=== PATIENT | male | born 1950 | race Two or more races ===

== ENCOUNTER 2022-07-04 17:02 | Inpatient (IN) | payer MEDICARE, OTHER ==
[~2022-07-04] VITALS: Ht 170.2 cm; Wt 91.2 kg
--- NOTE | 2022-07-04 17:10 | NUR ---
BIBA RA 85 From Home SOB/COPD exacerbation. PLACED ON BED, AAOX3, DYSPNEIC RR- 22 SATURATING AT 84%RA. 02 APPLIED 4LIT VIA NASAL CANULA SATURATING AT 94%.
[2022-07-04] MEDS ORDERED: methylPREDNISolone SOD SUCC 125 MG/2ML VIAL ONE (17:26)
[2022-07-04] MEDS ORDERED: ALBUTEROL FS 2.5 MG/3 ML VIAL.NEB NEB ONE ×2 (17:30→20:30)
[2022-07-04] MEDS ORDERED: IV NS 0.9% 500 ML BAG IV ONE ×2 (17:30→20:30)
[2022-07-04] MEDS ORDERED: ALBUTEROL FS 2.5 MG/3 ML VIAL.NEB CONTNEB ONE (17:30)
[2022-07-04] MEDS ORDERED: methylPREDNISolone SOD SUCC 125 MG/2ML VIAL IV ONE (17:30)
--- NOTE | 2022-07-04 17:30 | NUR ---
X-RAY TECH AT BED SIDE
[2022-07-04] MEDS ORDERED: ALBUTEROL FS 2.5 MG/3 ML VIAL.NEB ONE ×2 (17:32→20:09)
--- NOTE | 2022-07-04 17:39 | NUR ---
SWAB FOR COVID19 SENT TO LAB
--- NOTE | 2022-07-04 17:40 | NUR ---
LICENSED LOAN OFFICER AT BED SIDE FOR NEBULIZER
[2022-07-04 18:04] LABS: ABG BASE EXCESS -15.8 mmol/L; ABG PH 7.261 (7.350-7.450); ABG PO2 160.9 mmHg (75.0-100.0); COHb 0.8 % (0.5-1.5); MetHb 0.2 % (0.0-1.5); O2Hb 97.5 % (94.0-97.0); SITE, ABG Left Radial; VENT MODE, BG BREATHING TX
[2022-07-04] MEDS ORDERED: METO25TA3 PO (18:32)
[2022-07-04] MEDS ORDERED: UMEC1BLS IH (18:32)
[2022-07-04] MEDS ORDERED: LOSA100T31 PO (18:32)
[2022-07-04] MEDS ORDERED: ASPI-1169 PO (18:32)
[2022-07-04] MEDS ORDERED: OMEP20CA15 PO (18:32)
[2022-07-04] MEDS ORDERED: NIFE-34 PO (18:32)
[2022-07-04] MEDS ORDERED: ATOR10TA PO (18:32)
[2022-07-04] MEDS ORDERED: METF-441 PO (18:32)
[2022-07-04] MEDS ORDERED: ALBU18HF2 IH (18:32)
[2022-07-04] MEDS ORDERED: OMEG10006 PO (18:32)
[2022-07-04] MEDS ORDERED: RIVA10TA PO (18:32)
--- NOTE | 2022-07-04 19:15 | NUR ---
UNIT SUPERVISOR AT BED SIDE
[2022-07-04] MEDS ORDERED: ACETAMINOPHEN ES 500 MG TABLET ONE (19:44)
--- NOTE | 2022-07-04 19:57 | NUR ---
LACTIC ACID 7.2
[2022-07-04 19:58] LABS: ALANINE AMINOTRANSFERASE 66 U/L (12-78); ALBUMIN 2.9 g/dL (3.4-5.0); ALKALINE PHOSPHATASE 84 U/L (46-116); ASPARTATE AMINOTRANSFERASE 99 U/L (15-37); BILIRUBIN,DIRECT 0.5 mg/dL (0.0-0.2); BILIRUBIN,TOTAL 1.1 mg/dL (0.2-1.0); CALCIUM, SERUM 8.1 mg/dL (8.5-10.1); CARBON DIOXIDE 13 mmol/L (21-32); CHLORIDE 101 mmol/L (98-107); CREATININE 2.4 mg/dL (0.6-1.3); GLUCOSE 184 mg/dL (74-106); SODIUM SERUM 130 mmol/L (136-145); TOTAL PROTEIN, SERUM 7.8 g/dL (6.4-8.2); UREA NITROGEN, BLOOD 20 mg/dL (7-18)
[2022-07-04] MEDS ORDERED: ACETAMINOPHEN ES 500 MG TABLET PO ONE (20:00)
[2022-07-04 20:01] LABS: BASOPHILS # (AUTO) 0.1 K/uL (0.0-0.2); BASOPHILS % (AUTO) 0.5 % (0.0-2.0); EOSINOPHILS % (AUTO) 3.5 % (0.0-6.0); HEMATOCRIT 39 % (39-51); HEMOGLOBIN 12.1 g/dL (13.5-17.5); LYMPHOCYTES # (AUTO) 2.1 K/uL (0.8-4.8); LYMPHOCYTES % (AUTO) 17.6 % (20.0-44.0); MEAN CORPUSCULAR HGB CONC 31 g/dl (31.0-36.0); MEAN CORPUSCULAR VOLUME 79 fL (80-96); MONOCYTES # (AUTO) 0.6 K/uL (0.1-1.30); MONOCYTES % (AUTO) 5.4 % (2.0-12.0); NEUTROPHILS # (AUTO) 8.7 K/uL (1.8-8.9); PLATELET COUNT (AUTO) 266 K/uL (150-450); RED BLOOD CELL COUNT(AUTO) 4.93 MIL/uL (4.5-6.0); WHITE BLOOD COUNT (AUTO) 11.9 K/uL (4.3-11.0)
[2022-07-04 20:02] LABS: POTASSIUM 7.3 mmol/L (3.5-5.1)
[2022-07-04] MEDS ORDERED: INSULIN REGULAR, HUMAN 100 UNIT/ML 10 ML VIAL ONE (20:13)
[2022-07-04] MEDS ORDERED: DEXTROSE 50%-WATER 50 ML DISP.SYRIN ONE (20:13)
[2022-07-04] MEDS ORDERED: CALCIUM CHLORIDE 1,000 MG/10 ML DISP.SYRIN ONE (20:13)
[2022-07-04] MEDS ORDERED: SODIUM BICARBONATE SYR 50 MEQ/50 ML DISP.SYRIN ONE (20:13)
[2022-07-04] MEDS ORDERED: SODIUM POLYSTYRENE SULFONATE 15 G/60 ML BOTTLE PO ONE (20:30)
[2022-07-04] MEDS ORDERED: INSULIN REGULAR, HUMAN 100 UNIT/ML 10 ML VIAL IV ONE (20:30)
[2022-07-04] MEDS ORDERED: AZITHROMYCIN 500 MG in IV D5W 250 ML IV ONE (20:30)
[2022-07-04] MEDS ORDERED: CEFTRIAXONE 1GM BAG (ER ONLY) 50 ML IV ONE ×2 (20:30→21:15)
[2022-07-04] MEDS ORDERED: SODIUM BICARBONATE SYR 50 MEQ/50 ML DISP.SYRIN IV ONE ×2 (20:30→23:00)
[2022-07-04] MEDS ORDERED: IV NS 0.9% 1,000 ML BAG IV ONE (20:30)
[2022-07-04] MEDS ORDERED: DEXTROSE 50%-WATER 50 ML DISP.SYRIN IV ONE (20:30)
[2022-07-04] MEDS ORDERED: CALCIUM CHLORIDE 1,000 MG/10 ML DISP.SYRIN IV ONE (20:30)
--- NOTE | 2022-07-04 20:35 | NUR ---
CAMILO BELTRAN BONE CRUSHER AT PT'S BEDSIDE
[2022-07-04] MEDS ORDERED: CEFTRIAXONE 1GM BAG (ER ONLY) 0 ML IV ONE (21:10)
[2022-07-04] MEDS ORDERED: SODIUM POLYSTYRENE SULFONATE 15 G/60 ML BOTTLE ONE (21:11)
[2022-07-04] MEDS ORDERED: AZITHROMYCIN 500 MG VIAL ONE (21:15)
[2022-07-04] MEDS ORDERED: DEXTROSE 50%-WATER 50 ML DISP.SYRIN IV PRN (21:30)
[2022-07-04 22:11] LABS: CALCIUM, SERUM 7.3 mg/dL (8.5-10.1); CARBON DIOXIDE 14 mmol/L (21-32); CHLORIDE 105 mmol/L (98-107); CREATININE 2.6 mg/dL (0.6-1.3); GLUCOSE 197 mg/dL (74-106); POTASSIUM 5.4 mmol/L (3.5-5.1); SODIUM SERUM 135 mmol/L (136-145); UREA NITROGEN, BLOOD 22 mg/dL (7-18)
[2022-07-04] MEDS: BLOOD SUGAR DIAGNOSTIC 1 EACH STRIP VI SCH (22:39)
--- NOTE | 2022-07-04 22:52 | NUR ---
326 bed 2
[2022-07-04] MEDS ORDERED: MAG HYDROX/AL HYDROX/SIMETH 30 ML UDC PO PRN (23:00)
[2022-07-04] MEDS ORDERED: ONDANSETRON HCL/PF 4 MG/2 ML VIAL IVP PRN (23:00)
[2022-07-04] MEDS ORDERED: IV NS 0.9% 1,000 ML IV PRN (23:00)
[2022-07-04] MEDS ORDERED: Z GUARD REMEDY 4 OZ OINT TP PRN (23:00)
[2022-07-04] MEDS ORDERED: MAGNESIUM HYDROXIDE 30 ML UDC PO PRN (23:00)
[2022-07-04] MEDS ORDERED: ZOLPIDEM TARTRATE 5 MG TABLET PO PRN (23:00)
[2022-07-04] MEDS ORDERED: ACETAMINOPHEN 325 MG TABLET PO PRN (23:00)
--- NOTE | 2022-07-04 23:30 | NUR ---
REPORT GIVEN TO CHELO MARSHALL ROOM 326-2 FOR PATSY
[2022-07-05] MEDS ORDERED: IPRATROPIUM NEB FS 0.5 MG/2.5 ML AMPUL.NEB NEB SCH
[2022-07-05] MEDS ORDERED: methylPREDNISolone SOD SUCC 125 MG/2ML VIAL IV SCH
[2022-07-05] MEDS ORDERED: ALBUTEROL FS 2.5 MG/3 ML VIAL.NEB NEB SCH
[2022-07-05] MEDS ORDERED: PIPERACILLIN /TAZOBACTAM 2.25 G in IV D5W 50 ML IV SCH (00:04)
[2022-07-05] MEDS ORDERED: ALBUTEROL FS 2.5 MG/3 ML VIAL.NEB NEB PRN (00:30)
--- NOTE | 2022-07-05 00:43 | NUR ---
PATIENT TRANSFERRED TO [facility] [place] [facility]IA [facility]
--- NOTE | 2022-07-05 00:50 | NUR ---
PT TRANSFERRED TO 3W VIA ACLS PROTOCOL. VSS. ALL BELONGINGS AT PT'S BEDSIDE. ENDORSED PATSY AND GAVE PT'S HOME MEDS TO CHELO Acosta RN.
[2022-07-05] MEDS: IV NS 0.9% 1,000 ML IV PRN (02:43)
[2022-07-05] MEDS ORDERED: PIPERACILLIN /TAZOBACTAM 2.25 G VIAL IV ONE (02:56)
[2022-07-05] MEDS ORDERED: SODIUM BICARBONATE SYR 50 MEQ/50 ML DISP.SYRIN ONE (02:57)
[2022-07-05 04:40] VITALS: BP 132/85
[2022-07-05] MEDS: BLOOD SUGAR DIAGNOSTIC 1 EACH STRIP VI SCH ×4 (06:00→21:59)
[2022-07-05 06:31] LABS: BASOPHILS % (AUTO) 0.1 % (0.0-2.0); EOSINOPHILS % (AUTO) 0.1 % (0.0-6.0); HEMATOCRIT 38 % (39-51); HEMOGLOBIN 11.9 g/dL (13.5-17.5); LYMPHOCYTES # (AUTO) 0.5 K/uL (0.8-4.8); MEAN CORPUSCULAR HGB CONC 32 g/dl (31.0-36.0); MEAN CORPUSCULAR VOLUME 78 fL (80-96); MONOCYTES # (AUTO) 0.1 K/uL (0.1-1.30); MONOCYTES % (AUTO) 1.4 % (2.0-12.0); NEUTROPHILS # (AUTO) 7.9 K/uL (1.8-8.9); NEUTROPHILS % (AUTO) 92.4 % (43.0-81.0); PLATELET COUNT (AUTO) 232 K/uL (150-450); RED BLOOD CELL COUNT(AUTO) 4.83 MIL/uL (4.5-6.0); WHITE BLOOD COUNT (AUTO) 8.5 K/uL (4.3-11.0)
[2022-07-05] MEDS: INSULIN REGULAR, HUMAN 100 UNIT/ML 3 ML VIAL SQ PRN ×3 (06:32→17:05)
[2022-07-05 06:55] LABS: ALANINE AMINOTRANSFERASE 95 U/L (12-78); ALKALINE PHOSPHATASE 80 U/L (46-116); ASPARTATE AMINOTRANSFERASE 111 U/L (15-37); CALCIUM, SERUM 8.1 mg/dL (8.5-10.1); CARBON DIOXIDE 17 mmol/L (21-32); CHLORIDE 103 mmol/L (98-107); CREATININE 2.4 mg/dL (0.6-1.3); GLUCOSE 186 mg/dL (74-106); MAGNESIUM 1.6 mg/dL (1.8-2.4); PHOSPHORUS 4.1 mg/dL (2.5-4.9); POTASSIUM 5.1 mmol/L (3.5-5.1); SODIUM SERUM 136 mmol/L (136-145); TOTAL PROTEIN, SERUM 7.8 g/dL (6.4-8.2); UREA NITROGEN, BLOOD 23 mg/dL (7-18)
--- NOTE | 2022-07-05 07:30 | NUR ---
DIGITAL ACCOUNT DIRECTOR OPENING NOTES: RECEIVED PATIENT IN BED AWAKE, NOT IN RESPIRATORY OR CARDIAC DISTRESS, AFEBRILE. ON o2 INHALATION @ 2LPM VIA NC AND TOLERATING WELL. PATIENT ALERT AND ORIENTED X 3, BANGAL SPEAKING BUT ABLE TO UNDERSTAND POLISH. ON CLINICAL DATA ASSOCIATE CURRENT READING OF SR @62 BPM. WITH LEFT HAND IV ACCESS GAUGE 22 AND INFUSING NS @100CC/HR AND INFUSING WELL. SAFETY PRECAUTIONS MAINTAINED: BED LOCKED AND IN LOWEST POSITION, SIDE RAILS UP X2. CALL LIGHT IN EASY REACH. WILL MONITOR PT ACCORDINGLY.
[2022-07-05] MEDS: PANTOPRAZOLE 40 MG TABLET.DR PO SCH (07:35)
[2022-07-05 08:00] VITALS: BP 138/72
[2022-07-05] MEDS ORDERED: RIVAROXABAN 15 MG TABLET PO SCH ×2 (08:30→09:00)
[2022-07-05] MEDS: ASPIRIN 81 MG TAB.CHEW PO SCH (08:36)
[2022-07-05] MEDS: METOPROLOL SUCCINATE 50 MG TAB.SR.24H PO SCH (08:36)
[2022-07-05] MEDS: NIFEdipine XL (30MG) 30 MG TAB PO SCH (08:37)
[2022-07-05] MEDS ORDERED: OMEGA PO SCH (09:00)
[2022-07-05] MEDS ORDERED: RIVAROXABAN 10 MG TABLET PO SCH (09:00)
[2022-07-05] MEDS ORDERED: FATTY ACIDS PO SCH (09:00)
[2022-07-05 09:19] LABS: ABG BASE EXCESS -8.5 mmol/L; ABG OXYGEN SATURATION 93.4 % (92.0-98.5); ABG PCO2 27.5 mmHg (35.0-45.0); ABG PH 7.367 (7.350-7.450); ABG PO2 73.2 mmHg (75.0-100.0); AaDO2 122.8 mmHg; COHb 1.3 % (0.5-1.5); MetHb 0.1 % (0.0-1.5); O2Hb 92.1 % (94.0-97.0); SITE, ABG Left Radial
[2022-07-05] MEDS: PIPERACILLIN /TAZOBACTAM 2.25 G in IV D5W 50 ML IV SCH ×3 (09:36→21:59)
[2022-07-05] MEDS: methylPREDNISolone SOD SUCC 125 MG/2ML VIAL IV SCH ×3 (09:44→21:59)
[2022-07-05] MEDS ORDERED: HEPARIN SODIUM, PORCINE 5000 UNITS/1 ML VIAL SQ SCH ×2 (10:00→17:00)
--- NOTE | 2022-07-05 10:18 | NUR ---
RN NOTES: RECEIVED A CALL FROM AALIYAH(LAB) LACTIC ACID 5.5 TRENDING DOWN, INFORMED DR OWENS.
[2022-07-05] MEDS ORDERED: IV NS 0.9% 1,000 ML IV ONE (10:30)
[2022-07-05 11:12] LABS: BILIRUBIN,URINE NEGATIVE (NEGATIVE); COLOR,URINE YELLOW (YELLOW); LEUKOCYTE ESTERASE ,URINE NEGATIVE (NEGATIVE); NITRITE, URINE NEGATIVE (NEGATIVE); PH,URINE 5.5 (5.0-8.0); PROTEIN,URINE TRACE mg/dl (NEGATIVE); UGLUCOSE 100 MG/DL mg/dL (NEGATIVE); UROBILINOGEN,URINE 0.2 EU/dL (0.2)
[2022-07-05 11:22] LABS: CREATININE, URINE 45.7 MG/DL (30.0-125.0)
[2022-07-05 11:47] LABS: BACTERIA,URINE Rare /HPF (None Seen); RBC,URINE 0-2 /HPF (0-2); SQUAMOUS EPITHELIAL CELL,UR Rare /HPF (None Seen); WBC,URINE 0-2 /HPF (0-3)
[2022-07-05 12:00] VITALS: BP 111/69
--- NOTE | 2022-07-05 12:26 | NUR ---
RN NOTES: OBTAINED TELEPHONE CONSENT FROM ESTELLA (DAUGHTER)[phone] FOR HD ACCESS INSERTION AND HD.
[2022-07-05] MEDS ORDERED: Magnesium 1GM/D5W 100ML PREMIX 100 ML IV SCH (12:30)
--- NOTE | 2022-07-05 14:00 | NUR ---
RN NOTES: S/P RIGHT IJ CATH PLACEMENT, PATIENT TOLERATED WELL.
--- NOTE | 2022-07-05 14:00 | NUR ---
JOANNA NOTES: PATIENT S/P IJ CATH INSERTION (LEFT), PATIENT TOLERATED WELL. Addendum: 07/05/22 at 1800 by EDIE FONTANA RN ERROR, RIGHT IJ CATH
[2022-07-05] MEDS: IPRATROPIUM NEB FS 0.5 MG/2.5 ML AMPUL.NEB NEB SCH ×2 (14:28→20:29)
[2022-07-05] MEDS: ALBUTEROL FS 2.5 MG/3 ML VIAL.NEB NEB SCH ×2 (14:29→20:29)
--- NOTE | 2022-07-05 15:20 | NUR ---
RN NOTES: PATIENT ONGOING FOR HD WITH JOANNA CALDERON. FAMILY AT BED SIDE.
[2022-07-05 16:00] VITALS: BP 106/81
--- NOTE | 2022-07-05 16:00 | NUR ---
RN NOTES: PATIENT HAD XRAY FOR CHECKING PLACEMENT OF THE HD CATH.
--- NOTE | 2022-07-05 18:20 | NUR ---
RN NOTES: S/P HD, BP 125/62, HR 65,OUT WITH 2L FLUIDS. FAMILY AT BEDSIDE.PATIENT STABLE AT THIS TIME.
--- NOTE | 2022-07-05 18:58 | NUR ---
TUFTING MACHINE OPERATOR SINGLE NEEDLE CLOSING NOTES: PATIENT IN BED AWAKE, NOT IN RESPIRATORY OR CARDIAC DISTRESS, AFEBRILE. ON o2 INHALATION @ 2LPM VIA NC AND TOLERATING WELL. PATIENT ALERT AND ORIENTED X 3, BANGAL SPEAKING BUT ABLE TO UNDERSTAND NEPALI. ON HEAD INSULATION BOARD SAW OPERATOR CURRENT READING OF SR 68 BPM WITH PVC'S. WITH LEFT HAND IV ACCESS GAUGE 22 AND INFUSING NS @100CC/HR AND INFUSING WELL. SAFETY PRECAUTIONS MAINTAINED: BED LOCKED AND IN LOWEST POSITION, SIDE RAILS UP X2. CALL LIGHT IN EASY REACH. ENDORSED TO CONTRACT CONSULTANT FOR PATSY.
--- NOTE | 2022-07-05 19:30 | NUR ---
RN OPENING NOTE PATIENT IN BED, AWAKE WITH FAMILY AT BEDSIDE. PATIENT IS ABLE TO MAKE NEEDS KNOWN. ABLE TO UNDERSTAND NIGERIAN, PRIMARY TAMAZIGHT SPEAKING. PATIENT HAS A NC ON 2LP TOLERATING WELL. NO SOB NOTED AT THIS TIME. PATIENT HAS A LHAND 22 G PATENT AND INTACT. RIJ DRESSING IN PLACE, C/D/I. TELE MONITOR READS 72 BPM WITH PVC SR. PATIENT DOES NOT REPORT ANY PAIN. SAFETY MEASURES IN PLACE: BED LOCKED AND IN LOWEST POSITION, CALL LIGHT WITHIN REACH, SIDE RAILS UP. WILL MONITOR PATIENT CLOSELY
[2022-07-05 20:00] VITALS: BP 118/61
[2022-07-05] MEDS: ATORVASTATIN 10 MG TABLET PO SCH (21:58)
[2022-07-05] MEDS: *INSULIN REGULAR(HUMULIN R)HUM 100 UNIT/ML VIAL SQ PRN (22:20)
[2022-07-06] MEDS: ALBUTEROL FS 2.5 MG/3 ML VIAL.NEB NEB SCH ×2 (01:34→08:13)
[2022-07-06] MEDS: IPRATROPIUM NEB FS 0.5 MG/2.5 ML AMPUL.NEB NEB SCH ×4 (01:34→20:17)
--- NOTE | 2022-07-06 01:41 | NUR ---
RN NOTE NOTIFIED MD RE STAT EKG RESULT AFIB, HR AFIB UNCONTROLLED HIGHEST 128 BPM. MD ORDERED METOPROLOL 5 MG IV ONCE.
[2022-07-06] MEDS ORDERED: METOPROLOL TARTRATE INJ 5 MG/5 ML AMPUL IVP ONE (02:00)
[2022-07-06] MEDS: PIPERACILLIN /TAZOBACTAM 2.25 G in IV D5W 50 ML IV SCH ×4 (02:02→21:51)
[2022-07-06] MEDS: methylPREDNISolone SOD SUCC 125 MG/2ML VIAL IV SCH ×2 (02:02→08:42)
[2022-07-06] MEDS: IV NS 0.9% 1,000 ML IV PRN ×2 (02:02→09:38)
[2022-07-06] MEDS ORDERED: METOPROLOL TARTRATE INJ 5 MG/5 ML AMPUL ONE (05:07)
[2022-07-06] MEDS: BLOOD SUGAR DIAGNOSTIC 1 EACH STRIP VI SCH ×4 (07:57→22:39)
[2022-07-06 08:00] VITALS: BP 126/77
[2022-07-06] MEDS: INSULIN REGULAR, HUMAN 100 UNIT/ML 3 ML VIAL SQ PRN ×3 (08:00→17:27)
--- NOTE | 2022-07-06 08:14 | NUR ---
CORRESPONDENCE SCHOOL TEACHER OPENING NOTE Patient in bed, awake. A/O 3, able to make needs known. Iv access on Left hand #18 infusing NS at 100 ml/hr. On tele monitoring showing uncontrolled Afib, HR 122. Patient for transfer to [facility]; patient still eating breakfast. Safety precautions in place: bed in low, locked position; siderails up x 2; call ight within reach. Will continue to monitor.
[2022-07-06] MEDS ORDERED: RIVAROXABAN 15 MG TABLET PO SCH ×2 (08:30→18:00)
[2022-07-06] MEDS: PANTOPRAZOLE 40 MG TABLET.DR PO SCH (08:42)
[2022-07-06] MEDS: ASPIRIN 81 MG TAB.CHEW PO SCH (08:42)
[2022-07-06] MEDS: NIFEdipine XL (30MG) 30 MG TAB PO SCH (08:42)
[2022-07-06] MEDS: METOPROLOL SUCCINATE 50 MG TAB.SR.24H PO SCH ×2 (08:43→21:53)
--- NOTE | 2022-07-06 09:20 | NUR ---
RN NOTE PATIENT TRANSFERRED TO [facility] AT 0920. I RECEIVED THE REPORT FROM MILADYS. PATIENT A/O X3, NO S/S OF DISTRESS. SPEAKING C[place] AND SOME VATICAN CITIZEN. PATIENT DIAGNOSIS ARE SOB, COPD EXACERBATION, A-FIB. PATIENT'S VITAL SIGNS UPON ARRIVING ARE TEMP:97.7 HR: 137 RR:22 O2:97 BP:134/80. , LEFT HAND IVF 18G. NC 2L, SKIN INTACT, WEIGHT: 145 LB, MONITOR UNCONTROLLED A-FIB. CHOPPED CONSISTENT CARB DIET. COVID NEGATIVE, FULL CODE. PATIENT'S BED AT LOWEST POSITION, CALL LIGHT WITHIN REACH, BED ALARM ON, WILL CONTINUE MONITORING THE PATIENT.
--- NOTE | 2022-07-06 09:22 | NUR ---
RN NOTE Report given to JOANNA Melendez of [facility] at 0855. Patient transferred to room 113-2 in [facility] for PATSY per ACLS protocol.
[2022-07-06 10:28] LABS: ABG BASE EXCESS -3.8 mmol/L; ABG OXYGEN SATURATION 90.1 % (92.0-98.5); ABG PCO2 31.3 mmHg (35.0-45.0); ABG PH 7.418 (7.350-7.450); ABG PO2 61.5 mmHg (75.0-100.0); AaDO2 101.2 mmHg; COHb 1.3 % (0.5-1.5); O2Hb 88.9 % (94.0-97.0); SITE, ABG Right Radial; VENT MODE, BG 2 LPM NC
[2022-07-06 10:51] LABS: ALANINE AMINOTRANSFERASE 66 U/L (12-78); ALBUMIN 2.8 g/dL (3.4-5.0); ALKALINE PHOSPHATASE 65 U/L (46-116); ASPARTATE AMINOTRANSFERASE 62 U/L (15-37); BILIRUBIN,TOTAL 0.9 mg/dL (0.2-1.0); CALCIUM, SERUM 7.5 mg/dL (8.5-10.1); CARBON DIOXIDE 23 mmol/L (21-32); CHLORIDE 102 mmol/L (98-107); CREATININE 1.5 mg/dL (0.6-1.3); GLUCOSE 173 mg/dL (74-106); SODIUM SERUM 134 mmol/L (136-145); TOTAL PROTEIN, SERUM 7.1 g/dL (6.4-8.2); UREA NITROGEN, BLOOD 18 mg/dL (7-18)
[2022-07-06] MEDS ORDERED: AMIODARONE 150 MG in IV D5W 100 ML IV ONE (11:30)
[2022-07-06] MEDS: AMIODARONE 450 MG in IV D5W 241 ML IV PRN ×2 (11:55→20:47)
[2022-07-06 12:00] VITALS: BP 142/72
[2022-07-06] MEDS ORDERED: ENOXAPARIN SODIUM 80 MG/0.8 ML DISP.SYRIN SQ SCH (12:30)
--- NOTE | 2022-07-06 14:06 | NUR ---
RESP TX DEFERRED, PT RECEIVING DIALYSIS. NO S/S OF SOB NOTED ATT Addendum: 07/06/22 at 1406 by MARYA ZAYAS RT Amended: Links added.
[2022-07-06 16:00] VITALS: BP 105/76
--- NOTE | 2022-07-06 16:01 | NUR ---
RN NOTE PATIENT COMPLETED RECEIVING HEMODIALYSIS, TOLERATED WELL. PER HD NURSE, REMOVED 1980 ML DURING HEMODIALYSIS. POST HD VITAL SIGNS BP-105/52, PULSE-117, RESPIRATIONS-22, TEMP-98.2.
[2022-07-06] MEDS: RIVAROXABAN 15 MG TABLET PO SCH (17:32)
[2022-07-06] MEDS: methylPREDNISolone SOD SUCC 40 MG/ML VIAL IV SCH (17:33)
--- NOTE | 2022-07-06 19:25 | NUR ---
RN NOTES RECEIVED PT FOR CONTINUITY OF CARE. PATIENT A/OX3 IN NO S/SX OF ACUTE DISTRESS AT THIS TIME; CURRENTLY ON2L OF 02 VIA NC, WITH 02 SAT >95% AT THIS TIME. WITH IV ACCESS ON R HAND#22 AND R FA#22 BOTH PATENT, INTACT AND FLUSHING WELL. WITH ONGOING AMIO DRIP RECEIVED @RATE OF 0.5MG/MIN; RUNNING AND MONITORED PER PROTOCOL . ALSO HAS R IJ SECURED AND INTACT NO SIGNS OF INFECTION. WILL ENSURE SAFETY MEASURES WITHIN THE SHIFT. PATIENT BED ALARM IS ON. HEAD OF BED ELEVATED. BED IS LOCKED, IN LOWEST POSITION AND SIDE RAILS UP. CALL LIGHT WITHIN REACH OF THE PATIENT. APPLICABLE ISOLATION PRECAUTIONS IN PLACE. WILL CONTINUE TO MONITOR AND REASSESS FOR ANY CHANGES AND WILL CARRY OUT ANY ONGOING AND ACTIVE MD ORDER.
[2022-07-06 20:00] VITALS: BP 111/74
[2022-07-06] MEDS: ATORVASTATIN 10 MG TABLET PO SCH (21:52)
[2022-07-06] MEDS: *INSULIN REGULAR(HUMULIN R)HUM 100 UNIT/ML VIAL SQ PRN (22:38)
--- NOTE | 2022-07-06 22:41 | NUR ---
td rn notes Blood sugar at 10pm is 227mg/dl 4 units of regular insulin given per sliding scale pts on po diet
[2022-07-07] VITALS: BP 119/83
[2022-07-07] MEDS: IPRATROPIUM NEB FS 0.5 MG/2.5 ML AMPUL.NEB NEB SCH ×4 (01:27→20:23)
[2022-07-07 04:00] VITALS: BP 125/79
[2022-07-07] MEDS: PIPERACILLIN /TAZOBACTAM 2.25 G in IV D5W 50 ML IV SCH ×4 (04:09→21:03)
[2022-07-07] MEDS: IV NS 0.9% 1,000 ML IV PRN ×2 (06:01→17:49)
--- NOTE | 2022-07-07 06:54 | NUR ---
[facility] RN NOTES PTS REMAINS IN BED A/O X 4 REMAINS ON [facility] STATUS ON 2 LITERS OF O2 VIA NC STILL ON AFIB 101 SATING 96 % NO SOB NO DISTRESS NOTED . CONT ON AMIODARONE DRIP 0.5MG/MIN, WELL ENDORSE TO RN DAY SHIFT FOR CONTINUITY OF CARE
--- NOTE | 2022-07-07 07:30 | NUR ---
RN OPENING NOTE PATIENT AWAKE IN BED. PATIENT IS ABLE TO MAKE NEEDS KNOWN. ABLE TO UNDERSTAND OCCITAN, PRIMARY DANISH SPEAKING. PATIENT HAS A NC ON 2LP TOLERATING WELL. NO SOB NOTED AT THIS TIME. PATIENT HAS A LHAND 22 G PATENT AND INTACT. RIJ DRESSING IN PLACE, C/D/I. A-Fib 101. PATIENT DOES NOT REPORT ANY PAIN. SAFETY MEASURES IN PLACE: BED LOCKED AND IN LOWEST POSITION, CALL LIGHT WITHIN REACH, SIDE RAILS UP. WILL MONITOR PATIENT CLOSELY
[2022-07-07] MEDS: PANTOPRAZOLE 40 MG TABLET.DR PO SCH (07:47)
[2022-07-07 08:00] VITALS: BP 129/81
[2022-07-07] MEDS: BLOOD SUGAR DIAGNOSTIC 1 EACH STRIP VI SCH ×4 (08:18→22:27)
[2022-07-07 09:57] LABS: ALBUMIN 2.6 g/dL (3.4-5.0); BILIRUBIN,TOTAL 0.8 mg/dL (0.2-1.0); CALCIUM, SERUM 7.3 mg/dL (8.5-10.1); CREATININE 1.2 mg/dL (0.6-1.3); POTASSIUM 3.2 mmol/L (3.5-5.1); TOTAL PROTEIN, SERUM 6.4 g/dL (6.4-8.2)
--- NOTE | 2022-07-07 11:01 | NUR ---
RN NOTE PATIENT'S 0900 O'CLOCK MEDICATION WERE ON HOLD DUE TO DIALYSIS NURSE REQUEST. NOW AT 1100 DIALYSIS IS DONE AND I AM GOING TO ADMINISTER THE 0900 O'CLOCK MEDICATION.
[2022-07-07] MEDS: NIFEdipine XL (30MG) 30 MG TAB PO SCH (11:07)
[2022-07-07] MEDS: methylPREDNISolone SOD SUCC 40 MG/ML VIAL IV SCH ×2 (11:08→17:17)
[2022-07-07] MEDS: ASPIRIN 81 MG TAB.CHEW PO SCH (11:08)
[2022-07-07] MEDS: METOPROLOL SUCCINATE 50 MG TAB.SR.24H PO SCH ×2 (11:08→17:14)
[2022-07-07] MEDS: DILTIAZEM HCL 30 MG TABLET PO SCH ×3 (11:36→23:32)
[2022-07-07 12:00] VITALS: BP 144/85
[2022-07-07] MEDS: INSULIN REGULAR, HUMAN 100 UNIT/ML 3 ML VIAL SQ PRN ×2 (12:19→17:04)
[2022-07-07 16:00] VITALS: BP 111/63
[2022-07-07] MEDS: RIVAROXABAN 15 MG TABLET PO SCH (17:16)
--- NOTE | 2022-07-07 19:00 | NUR ---
CLOSING NOTES PATIENT REMAINS IN BED A/O X 4. ON 2 LITERS OF O2 VIA NC STILL ON AFIB 95 SATING 95% NO SOB NO DISTRESS NOTED. CALL LIGHT WITHIN THE REACH, BED AT LOWEST POSITION, SIDE RAILS UP X3. WELL ENDORSE TO SODA DISPENSERFOOTWEAR STITCHER FOR CONTINUITY OF CARE.
[2022-07-07 20:00] VITALS: BP 104/58
--- NOTE | 2022-07-07 20:30 | NUR ---
mohamud rn notes Pts noted on tele afib hr 45-60 [facility] medical cost consultant made aware will continue to monitor pts.
[2022-07-07] MEDS: ATORVASTATIN 10 MG TABLET PO SCH (21:17)
[2022-07-07] MEDS: *INSULIN REGULAR(HUMULIN R)HUM 100 UNIT/ML VIAL SQ PRN (22:25)
--- NOTE | 2022-07-07 22:29 | NUR ---
mohamud rn notes lood sugar at 10pm is 236mg/dl 4 units of regular insulin given per sliding scale pts on po diet
--- NOTE | 2022-07-07 23:08 | NUR ---
[facility] RN NOTES RECEIVED PT FOR CONTINUITY OF CARE. PATIENT A/OX3 IN NO S/SX OF ACUTE DISTRESS AT THIS TIME; CURRENTLY ON2L OF 02 VIA NC, WITH 02 SAT >95% AT THIS TIME. WITH IV ACCESS ON R HAND#22 AND R FA#22 BOTH PATENT, INTACT AND FLUSHING WELL. ALSO HAS R IJ SECURED AND INTACT NO SIGNS OF INFECTION. WILL ENSURE SAFETY MEASURES WITHIN THE SHIFT. PATIENT BED ALARM IS ON. HEAD OF BED ELEVATED. BED IS LOCKED, IN LOWEST POSITION AND SIDE RAILS UP. CALL LIGHT WITHIN REACH OF THE PATIENT. APPLICABLE ISOLATION PRECAUTIONS IN PLACE. WILL CONTINUE TO MONITOR AND REASSESS FOR ANY CHANGES AND WILL CARRY OUT ANY ONGOING AND ACTIVE MD ORDER.
--- NOTE | 2022-07-07 23:33 | NUR ---
mohamud rn notes cardizem dose for 0000hrs dose hold d/t hr 51 bp 105/60 pts is awake alert and responsive.
[2022-07-08] VITALS: BP 105/51
[2022-07-08] MEDS: IPRATROPIUM NEB FS 0.5 MG/2.5 ML AMPUL.NEB NEB SCH ×4 (02:04→20:17)
[2022-07-08] MEDS: PIPERACILLIN /TAZOBACTAM 2.25 G in IV D5W 50 ML IV SCH ×4 (02:41→20:59)
[2022-07-08 04:00] VITALS: BP 105/51
[2022-07-08] MEDS: DILTIAZEM HCL 30 MG TABLET PO SCH ×3 (05:22→17:27)
--- NOTE | 2022-07-08 06:00 | NUR ---
[facility] RN NOTES PTS REMAINS IN BED A/O X 4 REMAINS ON [facility] STATUS ON 2 LITERS OF O2 VIA NC STILL ON AFIB 45-60 SATING 96 % NO SOB NO DISTRESS NOTED . WELL ENDORSE TO RN DAY SHIFT FOR CONTINUITY OF CARE
[2022-07-08] MEDS: IV NS 0.9% 1,000 ML IV PRN ×2 (06:23→21:11)
[2022-07-08 07:47] LABS: ALANINE AMINOTRANSFERASE 56 U/L (12-78); ALBUMIN 2.6 g/dL (3.4-5.0); ALKALINE PHOSPHATASE 49 U/L (46-116); ASPARTATE AMINOTRANSFERASE 50 U/L (15-37); BILIRUBIN,TOTAL 0.9 mg/dL (0.2-1.0); CALCIUM, SERUM 7.7 mg/dL (8.5-10.1); CARBON DIOXIDE 22 mmol/L (21-32); CHLORIDE 100 mmol/L (98-107); CREATININE 2.4 mg/dL (0.6-1.3); GLUCOSE 131 mg/dL (74-106); POTASSIUM 4.3 mmol/L (3.5-5.1); SODIUM SERUM 131 mmol/L (136-145); TOTAL PROTEIN, SERUM 6.7 g/dL (6.4-8.2); UREA NITROGEN, BLOOD 32 mg/dL (7-18)
[2022-07-08 08:00] VITALS: BP 122/64
[2022-07-08] MEDS: BLOOD SUGAR DIAGNOSTIC 1 EACH STRIP VI SCH ×4 (09:32→21:26)
[2022-07-08] MEDS: PANTOPRAZOLE 40 MG TABLET.DR PO SCH (09:41)
[2022-07-08] MEDS: methylPREDNISolone SOD SUCC 40 MG/ML VIAL IV SCH ×2 (09:42→16:50)
[2022-07-08] MEDS: ASPIRIN 81 MG TAB.CHEW PO SCH (09:45)
[2022-07-08] MEDS: NIFEdipine XL (30MG) 30 MG TAB PO SCH (09:46)
[2022-07-08] MEDS: METOPROLOL SUCCINATE 50 MG TAB.SR.24H PO SCH ×2 (10:53→17:00)
[2022-07-08 12:00] VITALS: BP 125/65
[2022-07-08 16:00] VITALS: BP 125/65
[2022-07-08] MEDS: INSULIN REGULAR, HUMAN 100 UNIT/ML 3 ML VIAL SQ PRN (17:17)
[2022-07-08] MEDS: RIVAROXABAN 15 MG TABLET PO SCH (17:35)
--- NOTE | 2022-07-08 19:30 | NUR ---
PROCESS DEVELOPER OPENING NOTES RECEIVED PT IN BED, AWAKE. A/O X 3. CURRENTLY ON O2 VIA NC AT 2LPM TOLERATING WELL, SATING AT 98%. NO S/SX OF ACUTE DISTRESS NOTED AT THIS TIME. IV ACCESS ON R HAND #22G, RUNNING NS @ 100 CC/HR AND RFA#22, BOTH PATENT, INTACT AND FLUSHING WELL. ALSO HAS R IJ FOR HD ACCESS. ALL SAFETY MEASURES IN PLACE: BED LOCKED IN LOW POSITION. BED ALARM ON. SIDE RAILS UP X 2. CALL LIGHT WITHIN REACH. WILL CONTINUE TO MONITOR AND REASSESS FOR ANY CHANGES DURING THE NIGHT.
--- NOTE | 2022-07-08 19:46 | NUR ---
RN NOTE PT RESTING IN BED, AWAKE ALERT AND VERBALLY RESPONSIVE. NOT IN DISTRESS. CONT IN O2 VIA NC @3L. DUE MEDICATIONS GIVEN, AM/PM CARE RENDERED. WILL CONT TO MONITOR. SAFETY MEASURES FOLLOWED.
[2022-07-08 20:00] VITALS: BP 107/59
[2022-07-08] MEDS: ATORVASTATIN 10 MG TABLET PO SCH (21:06)
[2022-07-08] MEDS: *INSULIN REGULAR(HUMULIN R)HUM 100 UNIT/ML VIAL SQ PRN (21:28)
--- NOTE | 2022-07-08 23:45 | NUR ---
RN NOTE CARDIZEM NOT ADMINISTERED. PT PULSE IS LOW AT 59 BPM. BP IS 109/50. WILL CONTINUE TO MONITOR CLOSELY.
[2022-07-09] VITALS: BP 109/50
[2022-07-09] MEDS: IPRATROPIUM NEB FS 0.5 MG/2.5 ML AMPUL.NEB NEB SCH ×4 (01:39→20:43)
[2022-07-09] MEDS: PIPERACILLIN /TAZOBACTAM 2.25 G in IV D5W 50 ML IV SCH ×4 (03:00→22:25)
[2022-07-09 04:00] VITALS: BP 122/72
--- NOTE | 2022-07-09 05:29 | NUR ---
REGENERATION OPERATOR CLOSING NOTE ALL DUE MEDS GIVEN. NEEDS ATTENDED TO. PT HR IS STILL IN THE LOW 60s BUT SHOWS NO S/SX OF ACUTE DISTRESS. DENIES ANY PAIN. WILL ENDORSE TO AM SHIFT NURSE FOR PATSY.
[2022-07-09 06:28] LABS: BASOPHILS % (AUTO) 0.1 % (0.0-2.0); HEMATOCRIT 35 % (39-51); HEMOGLOBIN 11.4 g/dL (13.5-17.5); LYMPHOCYTES # (AUTO) 0.6 K/uL (0.8-4.8); LYMPHOCYTES % (AUTO) 7.5 % (20.0-44.0); MEAN CORPUSCULAR HGB CONC 33 g/dl (31.0-36.0); MEAN CORPUSCULAR VOLUME 76 fL (80-96); MONOCYTES # (AUTO) 0.6 K/uL (0.1-1.30); NEUTROPHILS # (AUTO) 7.2 K/uL (1.8-8.9); NEUTROPHILS % (AUTO) 85.4 % (43.0-81.0); PLATELET COUNT (AUTO) 129 K/uL (150-450); RED BLOOD CELL COUNT(AUTO) 4.55 MIL/uL (4.5-6.0); WHITE BLOOD COUNT (AUTO) 8.4 K/uL (4.3-11.0)
[2022-07-09] MEDS: DILTIAZEM HCL 30 MG TABLET PO SCH ×4 (06:28→17:06)
[2022-07-09 07:28] LABS: ALANINE AMINOTRANSFERASE 66 U/L (12-78); ALBUMIN 2.8 g/dL (3.4-5.0); ALKALINE PHOSPHATASE 52 U/L (46-116); ASPARTATE AMINOTRANSFERASE 36 U/L (15-37); BILIRUBIN,TOTAL 0.8 mg/dL (0.2-1.0); CALCIUM, SERUM 7.6 mg/dL (8.5-10.1); CARBON DIOXIDE 21 mmol/L (21-32); CHLORIDE 97 mmol/L (98-107); CREATININE 2.8 mg/dL (0.6-1.3); GLUCOSE 211 mg/dL (74-106); MAGNESIUM 1.8 mg/dL (1.8-2.4); PHOSPHORUS 4.6 mg/dL (2.5-4.9); POTASSIUM 3.6 mmol/L (3.5-5.1); SODIUM SERUM 131 mmol/L (136-145); UREA NITROGEN, BLOOD 48 mg/dL (7-18)
[2022-07-09] MEDS: BLOOD SUGAR DIAGNOSTIC 1 EACH STRIP VI SCH ×4 (07:52→22:00)
[2022-07-09] MEDS: PANTOPRAZOLE 40 MG TABLET.DR PO SCH (07:52)
[2022-07-09] MEDS: INSULIN REGULAR, HUMAN 100 UNIT/ML 3 ML VIAL SQ PRN ×3 (07:54→17:48)
--- NOTE | 2022-07-09 07:57 | NUR ---
WAREHOUSE TRAFFIC SUPERVISOR NOTE PATIENT IN BED, ALERT . ORIENTED , ON 2L SATURATION 99%, ON TELE MONITOR AFIB HR 93 , RT HAND , RT FA HL INTACT AND FLUSHED WELL , ON IVF ORDERED , BED IN LOWEST AND LOCKED POSITION, ABLE TO EAT BREAKFAST SELF, ALL NEEDS ATTENDED , PLAN OF CARE DISCUSSED WITH PATIENT SAFETY MEASURE IN PLACED, CALL LIGHT WITHIN REACH, WILL MONITOR
[2022-07-09 08:00] VITALS: BP 126/73
[2022-07-09 08:54] LABS: FERRITIN 46 ng/mL (8-388)
[2022-07-09] MEDS: methylPREDNISolone SOD SUCC 40 MG/ML VIAL IV SCH ×2 (09:23→16:44)
[2022-07-09 09:26] LABS: IRON, SERUM 17 ug/dl (50-175); TOTAL IRON BINDING CAPACITY 311 ug/dl (250-450)
[2022-07-09] MEDS: ASPIRIN 81 MG TAB.CHEW PO SCH (09:48)
[2022-07-09] MEDS: NIFEdipine XL (30MG) 30 MG TAB PO SCH (09:49)
[2022-07-09] MEDS ORDERED: IV NS 0.9% 1,000 ML IV PRN (10:00)
[2022-07-09] MEDS: INSULIN GLARGINE, 100 UNIT/ML CARTRIDGE SQ SCH ×2 (10:09→17:06)
--- NOTE | 2022-07-09 10:32 | NUR ---
BID MANAGER NOTE C\O NAUSEATED, ZOFRAN IV GIVEN ORDERED, WILL F\U
[2022-07-09] MEDS: METOPROLOL SUCCINATE 50 MG TAB.SR.24H PO SCH ×2 (10:38→16:43)
[2022-07-09] MEDS ORDERED: GUAIFENESIN/D-METHORPHAN HB 5 ML UDC PO PRN (11:00)
[2022-07-09] MEDS ORDERED: GUAIFENESIN 300 MG/15 ML UDC PO PRN ×2 (11:00)
--- NOTE | 2022-07-09 11:00 | NUR ---
VOLUNTEER MANAGER NOTE NOTED PATIENT WAS COUGHING AND NAUSEATED PER DR MARY GALEAS TO GIVE ROBITUSSIN PO Q6 HOUR AND CECILIO HAZELN WILL F\U Addendum: 07/09/22 at 1240 by ASTRID SPEARS RN 1100 mo loose stool now we Cancell stool for c dif
[2022-07-09 12:00] VITALS: BP 137/50
[2022-07-09] MEDS: SOD FERRIC GLUC 125 MG in IV NS 0.9% 100 ML IV SCH (14:41)
[2022-07-09 16:00] VITALS: BP 117/70
[2022-07-09] MEDS: RIVAROXABAN 15 MG TABLET PO SCH (17:07)
[2022-07-09 20:00] VITALS: BP 120/57
--- NOTE | 2022-07-09 20:10 | NUR ---
TANK SHOP SUPERVISOR OPENING NOTES: RECEIVED PATIENT SLEEP IN BED COMFORTABLY, AROUSABLE TO VERBAL STIMULI, BED IN LOW POSITION, CALL LIGHTS WITHIN REACH, NO COMPLAIN OF PAIN AND DISCOMFORT AT THIS TIME, ON O2 INHALATION AT 2LPM SATURATING WELL, ON TELE [id number], ON BED REST, IV LINE AT [place] #22 WITH ONGOING NSS@100ML/HR INFUSING WELL, HEMO DIALYSIS PORT AT RIGHT IJ, , PATIENT KEPT CLEAN AND DRY ALL NEEDS MET WILL CONTINUE TO MONITOR.
[2022-07-09] MEDS: ATORVASTATIN 10 MG TABLET PO SCH (22:26)
[2022-07-09] MEDS: *INSULIN REGULAR(HUMULIN R)HUM 100 UNIT/ML VIAL SQ PRN (22:30)
[2022-07-10] VITALS: BP 100/52
--- NOTE | 2022-07-10 00:09 | NUR ---
RN NOTES: BLOOD SUGAR 242- 3 UNITS INSULIN GIVEN PER SLIDING SCALE
--- NOTE | 2022-07-10 00:52 | NUR ---
RN NOTES: 12MIDNIGHT BP MEDICATION CARVEDILOL 60MG NOT GIVEN FOR BR- 100/52 AND HR -49-52 VIA TELE MONITOR
[2022-07-10] MEDS: IPRATROPIUM NEB FS 0.5 MG/2.5 ML AMPUL.NEB NEB SCH ×4 (02:04→20:08)
[2022-07-10] MEDS: PIPERACILLIN /TAZOBACTAM 2.25 G in IV D5W 50 ML IV SCH ×4 (03:16→21:22)
[2022-07-10 04:00] VITALS: BP 110/58
[2022-07-10] MEDS: DILTIAZEM HCL 30 MG TABLET PO SCH ×5 (06:00→23:30)
--- NOTE | 2022-07-10 06:00 | NUR ---
RN NOTES: BLOOD PRESSURE MEDICATION NOT GIVEN DUE TO LOW HR AT 50, BP 110/58
--- NOTE | 2022-07-10 06:38 | NUR ---
IT APPLICATIONS ANALYST CLOSING NOTES: PATIENT SLEEP IN BED COMFORTABLY, AROUSABLE TO VERBAL STIMULI, BED IN LOW POSITION CALL LIGHTS WITHIN REACH, NO COMPLAIN OF PAIN AND DISCOMFORT AT THIS TIME. ON O2 INHALATION AT 2LPM SATURATING WELL, ON TANG CATHETER -200 PATIENT ON TELE MONITOR- A FIB CONTROLLED, ON HD WITH RIGHT IJ HD ACCESS, LAST HD DONE AT 07/07 WITH 2L OUT, KEPT CLEAN AND DRY ALL NEEDS MET ENDORSE TO INCOMING SHIFT.
[2022-07-10 07:04] LABS: BASOPHILS % (AUTO) 0.2 % (0.0-2.0); HEMATOCRIT 37 % (39-51); HEMOGLOBIN 12.1 g/dL (13.5-17.5); LYMPHOCYTES # (AUTO) 0.7 K/uL (0.8-4.8); LYMPHOCYTES % (AUTO) 4.9 % (20.0-44.0); MEAN CORPUSCULAR HGB CONC 33 g/dl (31.0-36.0); MEAN CORPUSCULAR VOLUME 77 fL (80-96); MONOCYTES # (AUTO) 1.3 K/uL (0.1-1.30); MONOCYTES % (AUTO) 8.7 % (2.0-12.0); NEUTROPHILS # (AUTO) 12.8 K/uL (1.8-8.9); NEUTROPHILS % (AUTO) 86.2 % (43.0-81.0); PLATELET COUNT (AUTO) 149 K/uL (150-450); RED BLOOD CELL COUNT(AUTO) 4.86 MIL/uL (4.5-6.0); WHITE BLOOD COUNT (AUTO) 14.8 K/uL (4.3-11.0)
--- NOTE | 2022-07-10 07:45 | NUR ---
RN OPENING NOTES: RECEIVED PATIENT IN BED, AROUSABLE TO VERBAL STIMULI, BED IN LOW POSITION, CALL LIGHTS WITHIN REACH. PATIENT IS ABLE TO MAKE NEEDS KNOWN. NC AT 2LPM SATURATING WELL, NO S/S OF SOB OR DISTRESS. ON TELE MONIITOR: AFIB WITH HR 52 CONTROLLED. ON BED REST, IV LINE AT RIGHT HAND #22G AND RFA #22G, HEMO DIALYSIS PORT AT RIGHT IJ. WILL CONTINUE TO MONITOR
[2022-07-10 07:46] LABS: ALANINE AMINOTRANSFERASE 118 U/L (12-78); ALBUMIN 2.7 g/dL (3.4-5.0); ALKALINE PHOSPHATASE 45 U/L (46-116); ASPARTATE AMINOTRANSFERASE 91 U/L (15-37); CALCIUM, SERUM 7.5 mg/dL (8.5-10.1); CARBON DIOXIDE 18 mmol/L (21-32); CHLORIDE 96 mmol/L (98-107); GLUCOSE 158 mg/dL (74-106); MAGNESIUM 2.1 mg/dL (1.8-2.4); PHOSPHORUS 6.9 mg/dL (2.5-4.9); POTASSIUM 3.7 mmol/L (3.5-5.1); SODIUM SERUM 128 mmol/L (136-145); TOTAL PROTEIN, SERUM 6.7 g/dL (6.4-8.2); UREA NITROGEN, BLOOD 64 mg/dL (7-18)
[2022-07-10 07:59] LABS: BILIRUBIN,TOTAL 0.9 mg/dL (0.2-1.0); CREATININE 3.8 mg/dL (0.6-1.3)
[2022-07-10 08:00] VITALS: BP 111/67
[2022-07-10] MEDS: BLOOD SUGAR DIAGNOSTIC 1 EACH STRIP VI SCH ×4 (08:36→21:23)
[2022-07-10] MEDS: methylPREDNISolone SOD SUCC 40 MG/ML VIAL IV SCH ×2 (08:55→17:36)
[2022-07-10] MEDS: NIFEdipine XL (30MG) 30 MG TAB PO SCH (08:57)
[2022-07-10] MEDS: ASPIRIN 81 MG TAB.CHEW PO SCH (08:57)
[2022-07-10] MEDS: METOPROLOL SUCCINATE 50 MG TAB.SR.24H PO SCH ×2 (08:59→17:39)
[2022-07-10] MEDS: PANTOPRAZOLE 40 MG TABLET.DR PO SCH (09:01)
[2022-07-10] MEDS: INSULIN REGULAR, HUMAN 100 UNIT/ML 3 ML VIAL SQ PRN ×2 (09:01→12:33)
[2022-07-10] MEDS: INSULIN GLARGINE, 100 UNIT/ML CARTRIDGE SQ SCH ×2 (09:02→17:40)
[2022-07-10 12:00] VITALS: BP 93/70
[2022-07-10] MEDS: SOD FERRIC GLUC 125 MG in IV NS 0.9% 100 ML IV SCH (14:41)
[2022-07-10 16:00] VITALS: BP_SYST 131; BP_SYST 93; BP_DIAS 70; BP_DIAS 72
[2022-07-10] MEDS: RIVAROXABAN 15 MG TABLET PO SCH (17:38)
--- NOTE | 2022-07-10 19:23 | NUR ---
RN CLOSING NOTES PATIENT IN BED, AOX3. BED IN LOW POSITION, CALL LIGHTS WITHIN REACH. PATIENT IS ABLE TO MAKE NEEDS KNOWN. NC AT 2LPM SATURATING WELL, NO S/S OF SOB OR DISTRESS. ON TELE MONIITOR: AFIB WITH HR 72 CONTROLLED. ON BED REST, IV LINE AT RIGHT HAND #22G AND RFA #22G, HEMO DIALYSIS PORT AT RIGHT IJ. WILL ENDORSE TO DREDGE CAPTAIN NURSE FOR CONTINUITY OF CARE.
--- NOTE | 2022-07-10 19:30 | NUR ---
WAREHOUSE TEAM LEADER OPENING NOTES: RECEIVED PATIENT AWAKE ON BED, A/O X3. ON O2 VIA NC AT 2 LPM. NO COMPLAIN OF PAIN AND DISCOMFORT AT THIS TIME, ON TELE MONITOR AFIB CONTROLLED AT 79, IV LINE AT RIGHT FA #22G AND RIGHT HAND #22 WITH ONGOING NS @10ML/HR INFUSING WELL, HEMO DIALYSIS PORT AT RIGHT IJ, BED IN LOW POSITION, CALL LIGHTS WITHIN REACH, PATIENT KEPT CLEAN AND DRY, FAMILY MEMBERS AT BEDSIDE, WILL CONTINUE TO MONITOR THROUGHOUT THE SHIFT.
[2022-07-10 20:00] VITALS: BP 119/68
[2022-07-10] MEDS: ATORVASTATIN 10 MG TABLET PO SCH (21:23)
--- NOTE | 2022-07-10 21:49 | NUR ---
RN NOTE BS CHECKED AT 116 MG/DL, NO COVERAGE GIVEN.
[2022-07-11] VITALS: BP 131/77
[2022-07-11] MEDS: ALBUTEROL HALF STRENGTH 1.25 MG/3 ML VIAL.NEB NEB PRN (02:53)
[2022-07-11] MEDS: IPRATROPIUM NEB FS 0.5 MG/2.5 ML AMPUL.NEB NEB SCH ×4 (02:53→19:34)
[2022-07-11] MEDS: PIPERACILLIN /TAZOBACTAM 2.25 G in IV D5W 50 ML IV SCH ×4 (03:25→21:06)
[2022-07-11 04:00] VITALS: BP 129/72
[2022-07-11] MEDS: DILTIAZEM HCL 30 MG TABLET PO SCH ×4 (05:00→17:12)
--- NOTE | 2022-07-11 06:29 | NUR ---
GRAIN MERCHANDISER CLOSING NOTES: PATIENT AWAKE ON BED, A/O X3. ON O2 VIA NC AT 2 LPM. NO COMPLAIN OF PAIN AND DISCOMFORT AT THIS TIME, ON TELE MONITOR AFIB CONTROLLED AT 85, IV LINE AT RIGHT FA #22G AND RIGHT HAND #22 WITH ONGOING NS @10ML/HR INFUSING WELL, HEMO DIALYSIS PORT AT RIGHT IJ, BED IN LOW POSITION, ALL DUE MEDS GIVEN, KEPT DRY AND CLEAN, CALL LIGHT WITHIN REACH, NOTED WITH BRUISES ON THE L HAND, PICTURES TAKEN AND PLACED ON CHART. WILL ENDORSE TO AM SHIFT NURSE FOR CONTINUITY OF CARE..
--- NOTE | 2022-07-11 07:21 | NUR ---
DEBLOCKER OPENING NOTES: RECEIVED PATIENT IN BED, A/O X3. ON O2 VIA NC AT 2 LPM. NO COMPLAIN OF PAIN AND DISCOMFORT AT THIS TIME, ON TELE MONITOR , IV LINE AT RIGHT FA #22G AND RIGHT HAND #22 L, HEMO DIALYSIS PORT AT RIGHT IJ, BED IN LOW POSITION, CALL LIGHTS WITHIN REACH.
[2022-07-11 08:05] VITALS: BP 122/88
[2022-07-11] MEDS: ASPIRIN 81 MG TAB.CHEW PO SCH (08:37)
[2022-07-11] MEDS: PANTOPRAZOLE 40 MG TABLET.DR PO SCH (08:37)
[2022-07-11] MEDS: methylPREDNISolone SOD SUCC 40 MG/ML VIAL IV SCH ×2 (08:37→17:12)
[2022-07-11] MEDS: NIFEdipine XL (30MG) 30 MG TAB PO SCH (08:37)
[2022-07-11] MEDS: BLOOD SUGAR DIAGNOSTIC 1 EACH STRIP VI SCH ×4 (08:38→21:49)
[2022-07-11] MEDS: METOPROLOL SUCCINATE 50 MG TAB.SR.24H PO SCH ×2 (08:38→17:12)
[2022-07-11] MEDS: INSULIN GLARGINE, 100 UNIT/ML CARTRIDGE SQ SCH ×2 (08:41→17:14)
[2022-07-11] MEDS: INSULIN REGULAR, HUMAN 100 UNIT/ML 3 ML VIAL SQ PRN ×3 (08:42→21:58)
--- NOTE | 2022-07-11 09:29 | NUR ---
evaluated pt. need longterm HD butholding for now coz pt/family not emotionally ready for longterm hd per md.CM made aware.
--- NOTE | 2022-07-11 11:49 | NUR ---
RN NOTE CALLED DR HERRERA OFFICE, SPOKE WITH SUZANNE MIRANDA MESSAGE REGARDING PATIENTS STATUS PATIENT HAS BEEN NPO SINCE 0900 AND CONSENT FOR HD CATH PLACEMENT HAS BEEN SIGNED.
[2022-07-11 12:05] VITALS: BP 100/58
--- NOTE | 2022-07-11 12:21 | NUR ---
RN NOTE PATIENTS BLOOD PRESSURE NOTED TO BE LOW 93/55 RECHECKED WITH READING 0F 100/58. Addendum: 07/11/22 at 1222 by SACHA FIGUEROA RN HELD BLOOD PRESSURE MEDICATION
[2022-07-11] MEDS ORDERED: ANESTHESIA TRAY IN PYXIS 1 EA TRAY MC ONE (14:20)
--- NOTE | 2022-07-11 14:42 | NUR ---
RN NOTE PER DR HAYWOOD HE WILL BE IN TOMORROW FOR HD CATH PLACEMENT, PATIENTS NPO STATUS CANCELLED UNTIL TONIGHT MIDNIGHT. OBTAINED CONSENT FOR PROCEDURE, ANAESTHESIA, AND BLOOD TRANSFUSION FORM SON FABRIZIO CARPENTER, VIA PHONE.
[2022-07-11] MEDS: SOD FERRIC GLUC 125 MG in IV NS 0.9% 100 ML IV SCH (14:58)
[2022-07-11 16:00] VITALS: BP 132/60
--- NOTE | 2022-07-11 16:00 | NUR ---
RN NOTE SPOKE TO DR HAYWOOD, PER DR PEÑA PATIENT NPO [id number]. PENDING HD CATHETER PLACEMENT SCHEDULED OF 0700. DISCUSSED CONSENTS, ANAESTHESIA, BLOOD TRANSFUSION AND PROCEDURE CONSENT SIGNED AND PLACED IN PATIENTS CHART. ALSO INFORMED DR PAEZ OF PATIENTS XARELTO DOSE, PER PROVIDER HOLD DOSE. ORDERS FOLLOWED.
[2022-07-11 16:11] LABS: CALCIUM, SERUM 7.8 mg/dL (8.5-10.1); CARBON DIOXIDE 16 mmol/L (21-32); CHLORIDE 95 mmol/L (98-107); CREATININE 4.4 mg/dL (0.6-1.3); GLUCOSE 174 mg/dL (74-106); POTASSIUM 3.9 mmol/L (3.5-5.1); SODIUM SERUM 129 mmol/L (136-145); UREA NITROGEN, BLOOD 79 mg/dL (7-18)
[2022-07-11] MEDS: RIVAROXABAN 15 MG TABLET PO SCH (17:15)
--- NOTE | 2022-07-11 18:44 | NUR ---
CRIB TENDER CLOSING NOTES: PATIENT AWAKE ON BED, A/O X3. ON O2 VIA NC AT 2 LPM. NO COMPLAIN OF PAIN AND DISCOMFORT AT THIS TIME, ON TELE MONITOR AFIB , IV LINE AT RIGHT FA #22G AND RIGHT HAND #22 SL. HEMO DIALYSIS PORT AT RIGHT IJ, BED IN LOW POSITION, ALL DUE MEDS GIVEN, KEPT DRY AND CLEAN, CALL LIGHT WITHIN REACH. PATIENT IS TO BE NPO [id number] PENDING NEW HD CATH PLACEMENT. WILL ENDORSE TO AM SHIFT NURSE FOR CONTINUITY OF CARE..
--- NOTE | 2022-07-11 19:20 | NUR ---
CORRECTIONAL SECURITY OFFICER OPENING NOTE RECEIVED PATIENT IN BED, A/O X3. ON O2 VIA NC AT 2L. TOLERATING WELL, NO COMPLAIN OF PAIN AND DISCOMFORT AT THIS TIME, ON TELE MONITOR READING AFIB CONTROLLED HR 72, IV LINE AT RIGHT FA #22G AND RIGHT HAND #22 L, RIJ HEMO DIALYSIS PORT, ALL SAFETY MEASURES IN PLACE, WILL CONTINUE TO MONITOR.
[2022-07-11 20:00] VITALS: BP 125/65
[2022-07-11] MEDS: ATORVASTATIN 10 MG TABLET PO SCH (21:31)
[2022-07-12] VITALS: BP 166/66
[2022-07-12] MEDS: DILTIAZEM HCL 30 MG TABLET PO SCH ×5 (00:26→17:32)
[2022-07-12] MEDS: IPRATROPIUM NEB FS 0.5 MG/2.5 ML AMPUL.NEB NEB SCH ×4 (02:05→19:24)
[2022-07-12] MEDS: PIPERACILLIN /TAZOBACTAM 2.25 G in IV D5W 50 ML IV SCH ×4 (03:01→21:27)
[2022-07-12 04:00] VITALS: BP 118/53
[2022-07-12] MEDS ORDERED: HEPARIN SODIUM, PORCINE 1,000 UNIT/ML VIAL ONE (06:40)
[2022-07-12] MEDS ORDERED: LIDOCAINE HCL/MPF 1% 30 ML VIAL IJ ONE (06:40)
--- NOTE | 2022-07-12 06:45 | NUR ---
CLINICAL SERVICES PROFESSIONAL NOTE PATIENT PICKED UP FOR PROCEDURE FROM SURGERY TEAM VIA BED, VSS
--- NOTE | 2022-07-12 07:02 | NUR ---
JIG BORING MACHINE OPERATOR FOR METAL CLOSING NOTE RECEIVED PATIENT IN BED, A/O X3. ON O2 VIA NC AT 2L. TOLERATING WELL, NO COMPLAIN OF PAIN AND DISCOMFORT AT THIS TIME, ON TELE MONITOR READIN GAFIB CONTROLLED HR 72, IV LINE AT RIGHT FA #22G AND RIGHT HAND #22 L, RIJ HEMO DIALYSIS PORT, ALL DUE MEDS GIVEN. ALL SAFETY MEASURES IN PLACE, WILL ENDORSE TO MORNING SHIFT.
[2022-07-12] MEDS: PANTOPRAZOLE 40 MG TABLET.DR PO SCH (07:07)
[2022-07-12] MEDS: BLOOD SUGAR DIAGNOSTIC 1 EACH STRIP VI SCH ×4 (07:08→21:27)
--- NOTE | 2022-07-12 07:08 | NUR ---
RN NOTE RECEIVED REPORT FROM NIGHT NURSE. PATIENT IS NOT IN THE UNIT HE IS IN OR FOR HD CATH PLACEMENT, PATIENT WAS TAKEN TO OR AT 0645. WILL NOT ADMIN 0730 MEDICATIONS AT THIS TIME.
[2022-07-12] MEDS ORDERED: FENTANYL PF 100MCG/2ML AMPUL ONE (07:14)
[2022-07-12] MEDS ORDERED: MIDAZOLAM HCL 2 MG/2ML VIAL ONE (07:14)
[2022-07-12 07:26] LABS: BASOPHILS % (AUTO) 0.3 % (0.0-2.0); EOSINOPHILS % (AUTO) 0.1 % (0.0-6.0); HEMATOCRIT 37 % (39-51); LYMPHOCYTES # (AUTO) 0.6 K/uL (0.8-4.8); LYMPHOCYTES % (AUTO) 4.6 % (20.0-44.0); MEAN CORPUSCULAR HGB CONC 33 g/dl (31.0-36.0); MEAN CORPUSCULAR VOLUME 75 fL (80-96); MONOCYTES # (AUTO) 0.9 K/uL (0.1-1.30); MONOCYTES % (AUTO) 7.1 % (2.0-12.0); NEUTROPHILS # (AUTO) 10.6 K/uL (1.8-8.9); NEUTROPHILS % (AUTO) 87.9 % (43.0-81.0); PLATELET COUNT (AUTO) 203 K/uL (150-450); RED BLOOD CELL COUNT(AUTO) 4.88 MIL/uL (4.5-6.0); WHITE BLOOD COUNT (AUTO) 12.1 K/uL (4.3-11.0)
[2022-07-12 08:00] LABS: CALCIUM, SERUM 7.7 mg/dL (8.5-10.1); CARBON DIOXIDE 21 mmol/L (21-32); CHLORIDE 94 mmol/L (98-107); CREATININE 4.6 mg/dL (0.6-1.3); GLUCOSE 119 mg/dL (74-106); MAGNESIUM 2.2 mg/dL (1.8-2.4); PHOSPHORUS 7.5 mg/dL (2.5-4.9); POTASSIUM 3.6 mmol/L (3.5-5.1); SODIUM SERUM 128 mmol/L (136-145)
[2022-07-12] MEDS: ASPIRIN 81 MG TAB.CHEW PO SCH (08:50)
[2022-07-12] MEDS: NIFEdipine XL (30MG) 30 MG TAB PO SCH (09:00)
[2022-07-12] MEDS: METOPROLOL SUCCINATE 50 MG TAB.SR.24H PO SCH ×2 (09:00→17:32)
[2022-07-12] MEDS: INSULIN GLARGINE, 100 UNIT/ML CARTRIDGE SQ SCH ×2 (09:00→17:35)
[2022-07-12] MEDS: ALBUTEROL HALF STRENGTH 1.25 MG/3 ML VIAL.NEB NEB PRN (09:08)
[2022-07-12 09:10] VITALS: BP 109/72
[2022-07-12 09:11] LABS: UREA NITROGEN, BLOOD 86 mg/dL (7-18)
--- NOTE | 2022-07-12 09:13 | NUR ---
RT Respiratory tx is given after scheduled time due to pt being in surgery.
--- NOTE | 2022-07-12 09:20 | NUR ---
RN NOTE RECEIVED PATIENT FROM SURGERY IN STABLE CONDITION. POST OP ORDERS RECEIVED. NO CURRENT SIGNS OF BLEEDING, STABLE VITAL SIGNS
[2022-07-12] MEDS: methylPREDNISolone SOD SUCC 40 MG/ML VIAL IV SCH ×2 (09:21→17:31)
[2022-07-12] MEDS: *INSULIN REGULAR(HUMULIN R)HUM 100 UNIT/ML VIAL SQ PRN ×2 (11:12→23:02)
[2022-07-12 12:00] VITALS: BP 107/54
[2022-07-12] MEDS: SOD FERRIC GLUC 125 MG in IV NS 0.9% 100 ML IV SCH (14:31)
[2022-07-12 16:00] VITALS: BP 124/78
[2022-07-12] MEDS: RIVAROXABAN 15 MG TABLET PO SCH (17:34)
[2022-07-12] MEDS: ANCEF 1 GM/50 ML D5W IV SCH ×4 (18:17→23:09)
--- NOTE | 2022-07-12 18:44 | NUR ---
ASSEMBLING FABRICATOR CLOSING NOTE RECEIVED PATIENT IN BED, A/O X3. ON O2 VIA NC AT 2L. TOLERATING WELL, NO COMPLAIN OF PAIN AND DISCOMFORT AT THIS TIME, ON TELE MONITOR READING AFIB CONTROLLED, IV LINE AT RIGHT FA #22G AND RIGHT HAND #22 L, RIGHT CHEST WALL HD CATH HEMO DIALYSIS PORT, ALL DUE MEDS GIVEN. ALL SAFETY MEASURES IN PLACE, WILL ENDORSE TO MORNING SHIFT.
--- NOTE | 2022-07-12 20:34 | NUR ---
FINISH GRINDER OPENING NOTES: RECEIVED PATIENT AWAKE ON BED, A/O X3. ON O2 VIA NC AT 4 LPM. NO COMPLAIN OF PAIN AND DISCOMFORT AT THIS TIME, ON TELE MONITOR AFIB CONTROLLED AT 79, IV LINE AT RIGHT FA #22G RUNNING NS @10ML/HR INFUSING WELL, HEMO DIALYSIS PORT AT RIGHT CHESTWALL, BED IN LOW POSITION, CALL LIGHTS WITHIN REACH, PATIENT KEPT CLEAN AND DRY, FAMILY MEMBERS AT BEDSIDE, WILL CONTINUE TO MONITOR THROUGHOUT THE SHIFT.
[2022-07-12] MEDS: ATORVASTATIN 10 MG TABLET PO SCH (21:27)
--- NOTE | 2022-07-13 00:05 | NUR ---
RN NOTE REPORT GIVEN TO LAYO MARSHALL FOR CONTINUITY OF CARE.
--- NOTE | 2022-07-13 00:29 | NUR ---
[place] [id number]. PT IN BED, SLEEPING. NO DISTRESS NOTED AT THIS TIME. CARDIZEM SCHEDULED FOR 0000 WITHHELD PER DIETETIC AIDE AGAPITO ORDER. PT HR IN THE LOW 60S, SOMETIMES GOES DOWN TO 50S. CURRENT BP UPON ASSESSMENT IS 102/53. WILL CONTINUE TO MONITOR PT.
[2022-07-13] MEDS: IPRATROPIUM NEB FS 0.5 MG/2.5 ML AMPUL.NEB NEB SCH ×4 (02:06→19:51)
[2022-07-13] MEDS: PIPERACILLIN /TAZOBACTAM 2.25 G in IV D5W 50 ML IV SCH ×4 (02:11→21:21)
--- NOTE | 2022-07-13 02:19 | NUR ---
RN NOTE O2 TITRATED DOWN TO 1LPM BY RT ADRIANNE. PT TOLERATING WELL. O2 SAT AT 100%.
[2022-07-13 04:00] VITALS: BP 161/79
--- NOTE | 2022-07-13 04:15 | NUR ---
RN NOTE DUE MEDS GIVEN.
--- NOTE | 2022-07-13 06:23 | NUR ---
RN NOTE NO SIGNIFICANT CHANGES THROUGHOUT THE NIIGHT. WILL ENDORSE TO AM SHIFT NURSE FOR PATSY.
[2022-07-13] MEDS: DILTIAZEM HCL 30 MG TABLET PO SCH ×5 (06:31→23:38)
[2022-07-13 07:26] LABS: BASOPHILS % (AUTO) 0.3 % (0.0-2.0); HEMATOCRIT 35 % (39-51); HEMOGLOBIN 11.3 g/dL (13.5-17.5); LYMPHOCYTES # (AUTO) 0.2 K/uL (0.8-4.8); MEAN CORPUSCULAR HGB CONC 32 g/dl (31.0-36.0); MEAN CORPUSCULAR VOLUME 78 fL (80-96); MONOCYTES % (AUTO) 8.1 % (2.0-12.0); NEUTROPHILS # (AUTO) 11.2 K/uL (1.8-8.9); NEUTROPHILS % (AUTO) 89.6 % (43.0-81.0); PLATELET COUNT (AUTO) 183 K/uL (150-450); RED BLOOD CELL COUNT(AUTO) 4.53 MIL/uL (4.5-6.0); WHITE BLOOD COUNT (AUTO) 12.5 K/uL (4.3-11.0)
--- NOTE | 2022-07-13 07:37 | NUR ---
RN OPENING NOTES REPORT RECEIVED FROM [facility]. PATIENT IN BED RESTING. ON SUPPLEMENTAL OXYGEN VIA NASAL CANULA AT 1 LITER PER MINUTE, OXYGEN SATURATION AT 94%. ALERT AND ORIENTED 2-3. ATTACHED TO EXTERNAL GARMENT MANUFACTURING SUPERVISOR READING SINUS RHYTHM. DIAPER NOTED, SKIN INTACT. IV ACCESS ON RIGHT FOREARM 22 GAUGE SALINE LOCKED. SAFETY MEASURES IMPLEMENTED, BED IN LOWEST LOCKED POSITION, SIDE RAILS UP TIMES 2 CALL LIGHT WITHIN REACH. WILL CONTINUE PLAN OF CARE AND ANTICIPATE NEEDS.
[2022-07-13 08:00] VITALS: BP 98/60
[2022-07-13 08:02] LABS: ALANINE AMINOTRANSFERASE 86 U/L (12-78); ALBUMIN 2.2 g/dL (3.4-5.0); ALKALINE PHOSPHATASE 35 U/L (46-116); ASPARTATE AMINOTRANSFERASE 39 U/L (15-37); BILIRUBIN,TOTAL 0.8 mg/dL (0.2-1.0); CALCIUM, SERUM 7.8 mg/dL (8.5-10.1); CARBON DIOXIDE 25 mmol/L (21-32); CHLORIDE 96 mmol/L (98-107); GLUCOSE 144 mg/dL (74-106); MAGNESIUM 2.1 mg/dL (1.8-2.4); PHOSPHORUS 6.5 mg/dL (2.5-4.9); POTASSIUM 3.7 mmol/L (3.5-5.1); SODIUM SERUM 131 mmol/L (136-145); TOTAL PROTEIN, SERUM 5.7 g/dL (6.4-8.2); UREA NITROGEN, BLOOD 59 mg/dL (7-18)
[2022-07-13] MEDS: PANTOPRAZOLE 40 MG TABLET.DR PO SCH (08:13)
[2022-07-13] MEDS: BLOOD SUGAR DIAGNOSTIC 1 EACH STRIP VI SCH ×4 (08:13→21:21)
[2022-07-13] MEDS: INSULIN REGULAR, HUMAN 100 UNIT/ML 3 ML VIAL SQ PRN ×3 (08:19→21:41)
[2022-07-13] MEDS: ASPIRIN 81 MG TAB.CHEW PO SCH (08:43)
[2022-07-13] MEDS: methylPREDNISolone SOD SUCC 40 MG/ML VIAL IV SCH ×2 (08:43→17:26)
[2022-07-13] MEDS: METOPROLOL SUCCINATE 50 MG TAB.SR.24H PO SCH ×2 (08:44→17:00)
[2022-07-13] MEDS: NIFEdipine XL (30MG) 30 MG TAB PO SCH (08:44)
--- NOTE | 2022-07-13 08:44 | NUR ---
0900 MEDICATIONS HELD DUE TO PATIENT UNDERGOING HEMODIALYSIS.
[2022-07-13] MEDS: INSULIN GLARGINE, 100 UNIT/ML CARTRIDGE SQ SCH ×2 (08:54→17:52)
[2022-07-13] MEDS ORDERED: CELLULOSE,OXIDIZED 1 EA PACK MC ONE (11:00)
[2022-07-13 12:00] VITALS: BP 103/72
--- NOTE | 2022-07-13 13:43 | NUR ---
RT Respiratory Tx deferred. pt in procedure.
[2022-07-13] MEDS: SOD FERRIC GLUC 125 MG in IV NS 0.9% 100 ML IV SCH (15:52)
[2022-07-13 16:00] VITALS: BP 105/60
[2022-07-13] MEDS: RIVAROXABAN 15 MG TABLET PO SCH (17:32)
--- NOTE | 2022-07-13 19:35 | NUR ---
PT RECEIVED AWAKE, RESTING COMFORTABLY WITH FAMILY AT BEDSIDE. ON SUPPLEMENTAL OXYGEN VIA NASAL CANULA AT 1 LITER PER MINUTE, OXYGEN SATURATION AT 94%. ALERT AND ORIENTED X3. ATTACHED TO EXTERNAL APARTMENT LEASING CONSULTANT READING SINUS RHYTHM. DIAPER NOTED, SKIN INTACT. IV ACCESS ON RIGHT FOREARM G#22 SALINE LOCKED. RT CHEST WALL HD CATH C/D/I. SAFETY MEASURES IN PLACE, BED IN LOWEST LOCKED POSITION, SIDE RAILS UP TIMES 2 CALL LIGHT WITHIN REACH. WILL CONTINUE PLAN OF CARE AND ANTICIPATE NEEDS.
[2022-07-13 20:00] VITALS: BP 94/56
--- NOTE | 2022-07-13 20:18 | NUR ---
Pt recvd awake and alert on 1 lpm NC, diminished bilateral BS, neb tx given, pt nino well with no adverse reaction noted.
[2022-07-13] MEDS: ATORVASTATIN 10 MG TABLET PO SCH (21:21)
[2022-07-14] VITALS: BP 122/60
[2022-07-14] MEDS: IPRATROPIUM NEB FS 0.5 MG/2.5 ML AMPUL.NEB NEB SCH ×4 (01:29→19:43)
[2022-07-14] MEDS: PIPERACILLIN /TAZOBACTAM 2.25 G in IV D5W 50 ML IV SCH ×4 (02:17→21:26)
[2022-07-14 04:00] VITALS: BP 120/62
[2022-07-14] MEDS: DILTIAZEM HCL 30 MG TABLET PO SCH ×4 (05:14→23:57)
--- NOTE | 2022-07-14 05:37 | NUR ---
HD ONGOING. PT TOLERATING PROCEDURE WELL.
--- NOTE | 2022-07-14 06:38 | NUR ---
PT AWAKE, HD ONGOING. PT TOLERATING PROCEDURE WELL. NO COMPLAINTS, NOT IN DISTRESS. RESTING COMFORTABLY. ON SUPPLEMENTAL OXYGEN VIA NASAL CANULA AT 1 LITER PER MINUTE, OXYGEN SATURATION AT 99%. ALERT AND ORIENTED X3. ATTACHED TO EXTERNAL RESIDENTIAL LIVING ASSISTANT READING SINUS RHYTHM. SKIN INTACT. IV ACCESS ON RIGHT FOREARM G#22 SALINE LOCKED. RT CHEST WALL HD CATH BLEEDING NOTED ON DRESSING, DRESSING CHANGED BY HD NURSE. SAFETY MEASURES IN PLACE, BED IN LOWEST LOCKED POSITION, SIDE RAILS UP x2. CALL LIGHT WITHIN REACH. WILL ENDORSE TO NEXT NURSE ON DUTY FOR CONTINUITY OF CARE.
[2022-07-14 06:41] LABS: CALCIUM, SERUM 7.6 mg/dL (8.5-10.1); CARBON DIOXIDE 27 mmol/L (21-32); CHLORIDE 99 mmol/L (98-107); CREATININE 3.1 mg/dL (0.6-1.3); GLUCOSE 159 mg/dL (74-106); MAGNESIUM 1.9 mg/dL (1.8-2.4); PHOSPHORUS 4.6 mg/dL (2.5-4.9); POTASSIUM 3.4 mmol/L (3.5-5.1); SODIUM SERUM 133 mmol/L (136-145); UREA NITROGEN, BLOOD 47 mg/dL (7-18)
[2022-07-14 06:53] LABS: BASOPHILS % (AUTO) 0.3 % (0.0-2.0); EOSINOPHILS % (AUTO) 0.2 % (0.0-6.0); HEMATOCRIT 34 % (39-51); HEMOGLOBIN 11.1 g/dL (13.5-17.5); LYMPHOCYTES # (AUTO) 0.2 K/uL (0.8-4.8); LYMPHOCYTES % (AUTO) 1.8 % (20.0-44.0); MEAN CORPUSCULAR HGB CONC 33 g/dl (31.0-36.0); MEAN CORPUSCULAR VOLUME 76 fL (80-96); MONOCYTES # (AUTO) 0.5 K/uL (0.1-1.30); MONOCYTES % (AUTO) 4.6 % (2.0-12.0); NEUTROPHILS # (AUTO) 9.5 K/uL (1.8-8.9); NEUTROPHILS % (AUTO) 93.1 % (43.0-81.0); PLATELET COUNT (AUTO) 161 K/uL (150-450); RED BLOOD CELL COUNT(AUTO) 4.43 MIL/uL (4.5-6.0); WHITE BLOOD COUNT (AUTO) 10.2 K/uL (4.3-11.0)
--- NOTE | 2022-07-14 07:34 | NUR ---
RN NOTE PT RECEIVED RESTING IN BED, ALERT AND RESPONSIVE. NOT IN DISTRESS. CONT IN O2 VIA NC @3L. RCW PERMACATH IN PLACE, S/P HD WITH 1L FLUIDS REMOVED. WILL CONT TO MONITOR. SAFETY MEASURES FOLLOWED.
[2022-07-14 08:00] VITALS: BP 117/67
[2022-07-14] MEDS: ASPIRIN 81 MG TAB.CHEW PO SCH (09:11)
[2022-07-14] MEDS: PANTOPRAZOLE 40 MG TABLET.DR PO SCH (09:11)
[2022-07-14] MEDS: METOPROLOL SUCCINATE 50 MG TAB.SR.24H PO SCH ×2 (09:12→17:00)
[2022-07-14] MEDS: NIFEdipine XL (30MG) 30 MG TAB PO SCH (09:13)
[2022-07-14] MEDS: BLOOD SUGAR DIAGNOSTIC 1 EACH STRIP VI SCH ×4 (09:13→21:26)
[2022-07-14] MEDS: methylPREDNISolone SOD SUCC 40 MG/ML VIAL IV SCH ×2 (09:14→17:16)
[2022-07-14] MEDS: INSULIN GLARGINE, 100 UNIT/ML CARTRIDGE SQ SCH ×2 (09:15→17:19)
[2022-07-14 12:00] VITALS: BP 113/68
[2022-07-14 16:00] VITALS: BP 108/64
[2022-07-14] MEDS: RIVAROXABAN 15 MG TABLET PO SCH (17:18)
[2022-07-14 18:20] LABS: BAND % (MANUAL) 1 % (0.0-5.0); LYMPHOCYTES % (MANUAL) 12 % (16-48); MONOCYTES % (MANUAL) 3 % (0-11.0); NEUTROPHILS % (MANUAL) 84 (42-76)
[2022-07-14] MEDS ORDERED: LIDOCAINE HCL/PF 1% 30 ML SDV IJ ONE (18:30)
--- NOTE | 2022-07-14 19:08 | NUR ---
RN NOTE PT RESTING IN BED, AWAKE, ALERT AND VERBALLY RESPONSIVE. NOT IN DISTRESS. CONT IN O2 VIA NC @3L. RCW PERMACATH IN PLACE, S/P HD WITH 1L FLUIDS REMOVED. WILL CONT TO MONITOR. DUE MEDICATIONS GIVEN, AM/PM CARE RENDERED. SAFETY MEASURES FOLLOWED.
--- NOTE | 2022-07-14 19:20 | NUR ---
RN NOTE RECEIVED PATIENT IN BED, AO X 4, IN NO S/SX OF ACUTE DISTRESS AT THIS TIME, AT BEDSIDE. BREATHING EVEN AND UNLABORED, SATURATION AT 97% ON 1L VIA NC, ST ON THE MONITOR, HR IS 115. IV LINE AT RFA 22G, AND R HAND PATENT AND FLUSHING WELL, NO S/S OF INFECTION OR INFILTRATION, SALINE LOCKED. NOTED HD CATH AT R CHEST WALL WITH DRESSING SATURATED WITH BLOOD WAITING TO BE SEEN BY DR HAYWOOD FOR SUTURING, SUPPLIES PREPARED AT BEDSIDE. SAFETY MEASURES IMPLEMENTED. PATIENT BED ALARM IS ON. HEAD OF BED ELEVATED. BED IS LOCKED, IN LOWEST POSITION AND SIDE RAILS UP. CALL LIGHT WITHIN REACH OF THE PATIENT. WILL CONTINUE TO MONITOR AND REASSESS FOR ANY CHANGES.
[2022-07-14 20:00] VITALS: BP 118/69
[2022-07-14] MEDS: *INSULIN REGULAR(HUMULIN R)HUM 100 UNIT/ML VIAL SQ PRN (21:27)
[2022-07-14] MEDS: ATORVASTATIN 10 MG TABLET PO SCH (21:28)
[2022-07-15] VITALS (7 sets, daily range): BP systolic 108–119; BP diastolic 57–72
[2022-07-15] MEDS: IPRATROPIUM NEB FS 0.5 MG/2.5 ML AMPUL.NEB NEB SCH ×4 (01:28→19:42)
[2022-07-15] MEDS: PIPERACILLIN /TAZOBACTAM 2.25 G in IV D5W 50 ML IV SCH ×4 (02:50→21:28)
[2022-07-15] MEDS: DILTIAZEM HCL 30 MG TABLET PO SCH ×3 (05:23→18:00)
--- NOTE | 2022-07-15 05:58 | NUR ---
RT PT RECVD AWAKE AND ALERT ON 2 LPM NC, NEB TX GIVEN AND KRZYSZTOF WELL. NO ADVERSE REACTION. NO SOB OR RESPIRATORY DISTRESS NOTED THROUGHOUT SHIFT.
--- NOTE | 2022-07-15 07:15 | NUR ---
RN OPEN NOTE REPORT RECEIVED FROM NIGHTSHIFT. PATIENT IN BED RESTING. ON SUPPLEMENTAL OXYGEN VIA NASAL CANULA AT 1 LITER PER MINUTE, OXYGEN SATURATION AT 96%. ALERT AND ORIENTED 2-3. ATTACHED TO EXTERNAL RAILS DEVELOPER READING SINUS RHYTHM. PATIENT WEARING DIAPER , AND USING URINAL ,SKIN IS INTACT. IV ACCESS ON RIGHT FOREARM 22 GAUGE SALINE LOCKED. RUGHT UPPER CHEST HD CATHETER , CATHETER COVERED WITH DSD WITH BLOOD Y DISCHARGE , BY ASSOCIATE PROPERTY MANAGER NURSE REPORT, BLEEDING WAS NOTED FEW HOURS AGO , DR HAYWOOD IS AWARE .SAFETY MEASURES IMPLEMENTED, BED IN LOWEST LOCKED POSITION, SIDE RAILS UP TIMES 2 CALL LIGHT WITHIN REACH. WILL CONTINUE PLAN OF CARE AND ANTICIPATE NEEDS.
[2022-07-15] MEDS: PANTOPRAZOLE 40 MG TABLET.DR PO SCH (08:19)
[2022-07-15] MEDS: NIFEdipine XL (30MG) 30 MG TAB PO SCH (08:19)
[2022-07-15] MEDS: ASPIRIN 81 MG TAB.CHEW PO SCH (08:19)
[2022-07-15] MEDS: METOPROLOL SUCCINATE 50 MG TAB.SR.24H PO SCH ×2 (08:25→16:12)
[2022-07-15] MEDS: BLOOD SUGAR DIAGNOSTIC 1 EACH STRIP VI SCH ×4 (08:26→21:35)
[2022-07-15] MEDS: methylPREDNISolone SOD SUCC 40 MG/ML VIAL IV SCH (08:26)
[2022-07-15] MEDS: INSULIN REGULAR, HUMAN 100 UNIT/ML 3 ML VIAL SQ PRN (08:31)
[2022-07-15] MEDS: INSULIN GLARGINE, 100 UNIT/ML CARTRIDGE SQ SCH ×2 (08:38→18:03)
--- NOTE | 2022-07-15 10:15 | NUR ---
RN NOTE UPON RN ROUNDING , NOTED THAT PATIENT DEVELOPED CONTINUES MODERATE BLEEDING AROUND THE HD CATHETED .DR HAYWOOD WAS NOTIFIED , RESPOND IS PENDING.
--- NOTE | 2022-07-15 15:20 | NUR ---
Zosin put on hold , due to patient is currently on hemodialysis
[2022-07-15] MEDS ORDERED: CELLULOSE,OXIDIZED 1 EA PACK MC ONE (16:00)
--- NOTE | 2022-07-15 16:13 | NUR ---
s/p HM patient had low BP 112/63 , Toprol holded
--- NOTE | 2022-07-15 18:05 | NUR ---
RN NOTE HOLD CARDIZED DUE TO LOW BP 105/75, HR 75
--- NOTE | 2022-07-15 18:43 | NUR ---
RN CLOSING NOTE PATIENT IN BED RESTING. ON SUPPLEMENTAL OXYGEN VIA NASAL CANULA AT 1 LITER PER MINUTE, OXYGEN SATURATION AT 97%. ALERT AND ORIENTED 2-3. ATTACHED TO EXTERNAL ASSEMBLER CARDS AND ANNOUNCEMENTS READING SINUS RHYTHM. PATIENT WEARING DIAPER , AND USING URINAL ,SKIN IS INTACT. IV ACCESS ON RIGHT FOREARM 22 GAUGE SALINE LOCKED. RUGHT UPPER CHEST HD CATHETER ,XARELTO ON HOLD DUE BLEEDING AROUND THE HD CATHETER, DR HAYWOOD IS AWARE .SAFETY MEASURES IMPLEMENTED, BED IN LOWEST LOCKED POSITION, SIDE RAILS UP TIMES 2 CALL LIGHT WITHIN REACH. WILL ENDORSE GOLD LEAF PRINTER.
--- NOTE | 2022-07-15 19:10 | NUR ---
RN NOTE RECEIVED PATIENT IN BED, AO X 4, IN NO S/SX OF ACUTE DISTRESS AT THIS TIME, BREATHING EVEN AND UNLABORED, SATURATION AT 95% ON 1L VIA NC, AFIB ON THE MONITOR, HR IS 81. IV LINE AT RFA 22G, AND R HAND PATENT AND FLUSHING WELL, NO S/S OF INFECTION OR INFILTRATION, SALINE LOCKED. NOTED HD CATH AT R CHEST WALL WITH DRESSING IN PLACE, WILL MONITOR FOR BLEEDING. SAFETY MEASURES IMPLEMENTED. PATIENT BED ALARM IS ON. HEAD OF BED ELEVATED. BED IS LOCKED, IN LOWEST POSITION AND SIDE RAILS UP. CALL LIGHT WITHIN REACH OF THE PATIENT. WILL CONTINUE TO MONITOR AND REASSESS FOR ANY CHANGES.
[2022-07-15] MEDS: ATORVASTATIN 10 MG TABLET PO SCH (21:29)
[2022-07-15] MEDS: *INSULIN REGULAR(HUMULIN R)HUM 100 UNIT/ML VIAL SQ PRN (21:47)
[2022-07-16] VITALS: BP 110/64
[2022-07-16] MEDS: DILTIAZEM HCL 30 MG TABLET PO SCH ×5 (00:48→23:58)
[2022-07-16] MEDS: IPRATROPIUM NEB FS 0.5 MG/2.5 ML AMPUL.NEB NEB SCH ×4 (01:34→19:28)
[2022-07-16 04:00] VITALS: BP 117/69
[2022-07-16] MEDS: PIPERACILLIN /TAZOBACTAM 2.25 G in IV D5W 50 ML IV SCH ×4 (05:37→21:54)
--- NOTE | 2022-07-16 05:50 | NUR ---
RT PT RECVD AWAKE ON 1 LPM NC, NEB TX GIVEN AND KRZYSZTOF WELL. NO ADVERSE REACTION. NO SOB OR RESPIRATORY DISTRESS NOTED THROUGHOUT SHIFT.
--- NOTE | 2022-07-16 07:26 | NUR ---
RN OPENING NOTE RECEIVED PATIENT IN BED, AO X 4, IN NO S/SX OF ACUTE DISTRESS AT THIS TIME, BREATHING EVEN AND UNLABORED, SATURATION AT 95% ON 1L VIA NC, AFIB ON THE MONITOR, HR IS 81. IV LINE AT RFA 22G, AND R HAND PATENT AND FLUSHING WELL, NO S/S OF INFECTION OR INFILTRATION, SALINE LOCKED. NOTED HD CATH AT R CHEST WALL WITH DRESSING IN PLACE, WILL MONITOR FOR BLEEDING. SAFETY MEASURES IMPLEMENTED. PATIENT BED ALARM IS ON. HEAD OF BED ELEVATED. BED IS LOCKED, IN LOWEST POSITION AND SIDE RAILS UP. CALL LIGHT WITHIN REACH OF THE PATIENT. WILL CONTINUE PLAN OF CARE AND ANTICIPATE NEEDS.
--- NOTE | 2022-07-16 07:38 | NUR ---
PER CIGAR HEAD PUNCHER, PATIENT IS REFUSING BLOOD DRAW.
[2022-07-16] MEDS: PANTOPRAZOLE 40 MG TABLET.DR PO SCH (07:52)
[2022-07-16] MEDS: BLOOD SUGAR DIAGNOSTIC 1 EACH STRIP VI SCH ×4 (07:53→22:10)
[2022-07-16 08:00] VITALS: BP 109/60
[2022-07-16] MEDS: INSULIN REGULAR, HUMAN 100 UNIT/ML 3 ML VIAL SQ PRN ×3 (08:00→18:09)
[2022-07-16] MEDS: METOPROLOL SUCCINATE 50 MG TAB.SR.24H PO SCH ×2 (08:39→18:18)
[2022-07-16] MEDS: methylPREDNISolone SOD SUCC 40 MG/ML VIAL IV SCH (08:40)
[2022-07-16] MEDS: ASPIRIN 81 MG TAB.CHEW PO SCH (08:40)
[2022-07-16] MEDS: NIFEdipine XL (30MG) 30 MG TAB PO SCH (08:41)
[2022-07-16] MEDS: INSULIN GLARGINE, 100 UNIT/ML CARTRIDGE SQ SCH ×2 (08:42→18:10)
--- NOTE | 2022-07-16 11:00 | NUR ---
PER INNERSOLE MAKER, PATIENT IS REFUSING BLOOD DRAW. PATIENT STATES, "IF YOU TAKE MY BLOOD I WILL " PROVIDED EDUCATION ON THE IMPORTANCE OF BLOOD DRAWS TO PROVIDE UP TO DATE LAB RESULTS. PATIENT REQUIRES REINFORCEMENT IN TEACHING DUE TO LANGUAGE BARRIER. WILL REATTEMPT EDUCATION AT A LATER TIME.
[2022-07-16 12:00] VITALS: BP 106/61
[2022-07-16] MEDS ORDERED: CELLULOSE,OXIDIZED 1 EA PACK MC ONE (13:30)
[2022-07-16 16:00] VITALS: BP 118/64
--- NOTE | 2022-07-16 17:45 | NUR ---
RN NOTE RECEIVED PT AWAKE. ALERT ORIENTED. FAMILY AT BEDSIDE. ON 1L O2 VIA NC. DENIES ANY PAIN OR SOB. HD CATH IN RCHEST INTACT. DRESSING INTACT, NO BLEEDING NOTED. ALL SAFETY MEASURES IN PLACE. WILL CONTINUE TO MONITOR
--- NOTE | 2022-07-16 19:32 | NUR ---
RT Receive pt on 1L NC. No respiratory distress or SOB upon assessment. SPO2 97%. Breathing tx given and tolerated. No adverse reaction.
[2022-07-16 20:00] VITALS: BP 110/53
[2022-07-16] MEDS: ATORVASTATIN 10 MG TABLET PO SCH (21:54)
[2022-07-16] MEDS: *INSULIN REGULAR(HUMULIN R)HUM 100 UNIT/ML VIAL SQ PRN (22:05)
[2022-07-17] VITALS: BP 123/68
[2022-07-17] MEDS: IPRATROPIUM NEB FS 0.5 MG/2.5 ML AMPUL.NEB NEB SCH ×4 (01:25→20:05)
--- NOTE | 2022-07-17 01:27 | NUR ---
RT Non admin 0130 breathing tx. Pt asleep and did not wake up for tx. RN notified.
[2022-07-17] MEDS: PIPERACILLIN /TAZOBACTAM 2.25 G in IV D5W 50 ML IV SCH ×4 (02:41→21:29)
[2022-07-17 04:00] VITALS: BP 109/77
[2022-07-17] MEDS: DILTIAZEM HCL 30 MG TABLET PO SCH ×3 (05:36→17:59)
--- NOTE | 2022-07-17 07:23 | NUR ---
TEL RN OPENING NOTES: RECEIVED PT IN BED AWAKE, ALERT AND ORIENTED X 4 , NOT IN ANY DISTRESS, ON OXYGEN VIA NASAL CANULA 1 LITER, O2 SAT 96%. RIGHT UPPER CHEST PERMACATH WITH NO BLEEDING, NOTED RIGHT HAND EDEMA.IV ACCESS ON RH SALINE LOCK GAUGE 22 AND RIGHT FOREARM GAUGE 22 PATENT AND FLUSHED WELL.HR 66 ON TELE MONITOR.BED IS IN LOW AND LOCKED POSITION, WILL MONITOR
--- NOTE | 2022-07-17 07:39 | NUR ---
RN NOTE PT SLEEPING, AROUSES EASILY. NO CHNAGES IN LOC NOTED. TOLERATES O2 AT 1L. DENIES ANY SOB OR PAIN. REMAIN AFEBRILE. RCHEST HD CATH DRESSING INTACT, NO BLEEDING NOTED. DUE MEDS WERE GIVEN ORDERED. PT REFUSING BLOOD DRAW. MARCO ANTONIO LUGO MADE AWARE. ENDORSED TO RYAN FOR PATSY.
[2022-07-17 08:00] VITALS: BP 110/60
[2022-07-17] MEDS: BLOOD SUGAR DIAGNOSTIC 1 EACH STRIP VI SCH ×4 (08:02→21:59)
[2022-07-17] MEDS: PANTOPRAZOLE 40 MG TABLET.DR PO SCH (08:23)
[2022-07-17] MEDS: INSULIN REGULAR, HUMAN 100 UNIT/ML 3 ML VIAL SQ PRN ×3 (08:25→17:50)
[2022-07-17] MEDS: INSULIN GLARGINE, 100 UNIT/ML CARTRIDGE SQ SCH ×2 (08:26→17:51)
[2022-07-17] MEDS: NIFEdipine XL (30MG) 30 MG TAB PO SCH (09:00)
[2022-07-17] MEDS: METOPROLOL SUCCINATE 50 MG TAB.SR.24H PO SCH ×2 (09:00→17:52)
--- NOTE | 2022-07-17 09:00 | NUR ---
rn notes: procardia and toprol not given BP 110/60 and pt will receive dialysis today
[2022-07-17] MEDS: ASPIRIN 81 MG TAB.CHEW PO SCH (09:12)
[2022-07-17] MEDS: methylPREDNISolone SOD SUCC 40 MG/ML VIAL IV SCH (09:13)
[2022-07-17 12:00] VITALS: BP 112/62
--- NOTE | 2022-07-17 15:07 | NUR ---
RN NOTES: right upper chest permacath dressing changed by cvicu rn Jack no bleeding noted, noted with bruise picture taken and placed on the chart, son at bedside aware
[2022-07-17 16:00] VITALS: BP 112/66
--- NOTE | 2022-07-17 19:08 | NUR ---
ALLERGY NURSE CLOSING NOTE PATIENT IN BED RESTING. ON SUPPLEMENTAL OXYGEN VIA NASAL CANULA AT 1 LITER PER MINUTE, OXYGEN SATURATION AT 97%. ALERT AND ORIENTED 2-3. ATTACHED TO EXTERNAL RAGS LABORER READING SINUS RHYTHM. PATIENT WEARING DIAPER , AND USING URINAL ,SKIN IS INTACT. IV ACCESS ON RIGHT FOREARM 22 GAUGE SALINE LOCKED.AND RIGHT HAND GAUGE 22 FLUSHED WELL RUGHT UPPER CHEST HD CATHETER.DIALYSIS WAS DONE EARLIER WITH 1 LITER FLUID OUT .SAFETY MEASURES IMPLEMENTED, BED IN LOWEST LOCKED POSITION, SIDE RAILS UP TIMES 2 CALL LIGHT WITHIN REACH. ENDORSED TO WAVE SOLDERING MACHINE OPERATOR. FOR PATSY
--- NOTE | 2022-07-17 19:45 | NUR ---
RN NOTE RECEIVED PT AWAKE. ALERT ORIENTED X 4. FAMILY AT BEDSIDE. ON 1L O2 VIA NC. DENIES ANY PAIN OR SOB AT THIS [place]. HD CATH ON RCHEST INTACT, DRESSING INTACT, NO ACTIVE BLEEDING, NOTED WITH SOME BRUISES AROUND SITE, MD AWARE. ALL SAFETY MEASURES IN PLACE. WILL CONTINUE TO MONITOR
[2022-07-17 20:00] VITALS: BP 121/68
[2022-07-17] MEDS: ATORVASTATIN 10 MG TABLET PO SCH (21:59)
[2022-07-17] MEDS: *INSULIN REGULAR(HUMULIN R)HUM 100 UNIT/ML VIAL SQ PRN (22:00)
--- NOTE | 2022-07-17 23:40 | NUR ---
RN NOTE PT AWAKE. WATCHING TV. NOT IN ANY DISTRESS. TOLERATES 1L O2. DUE MEDS WERE GIVEN ORDERED. ENDORSED TO JOANNA LUO FOR PATSY
[2022-07-18] VITALS: BP 123/85
--- NOTE | 2022-07-18 | NUR ---
RECEIVED PT AWAKE. ALERT ORIENTED X4. ON 1L O2 VIA NC. DENIES ANY PAIN OR SOB AT THIS TIME. HD CATH ON RCHEST INTACT, DRESSING INTACT, NO ACTIVE BLEEDING, NOTED WITH SOME BRUISES AROUND SITE, MD AWARE. RFA G#22 IV INTACT. SAFETY MEASURES IN PLACE. PATIENT BED ALARM IS ON. HEAD OF BED ELEVATED. BED IS LOCKED IN LOWEST POSITION AND SIDE RAILS UP X2. CALL LIGHT WITHIN. WILL CONTINUE PLAN OF CARE.
[2022-07-18] MEDS: DILTIAZEM HCL 30 MG TABLET PO SCH ×3 (01:00→12:00)
[2022-07-18] MEDS: IPRATROPIUM NEB FS 0.5 MG/2.5 ML AMPUL.NEB NEB SCH ×3 (02:34→13:49)
[2022-07-18] MEDS: PIPERACILLIN /TAZOBACTAM 2.25 G in IV D5W 50 ML IV SCH ×2 (02:49→09:02)
[2022-07-18 04:00] VITALS: BP 119/77
--- NOTE | 2022-07-18 06:59 | NUR ---
PT AWAKE, ALERT ORIENTED X4. ON 1L O2 VIA NC. DENIES ANY PAIN OR SOB AT THIS TIME. HD CATH ON Rt CHEST INTACT, DRESSING INTACT, NO ACTIVE BLEEDING, NOTED WITH SOME BRUISES AROUND SITE, MD AWARE. RFA G#22 IV INTACT. SAFETY MEASURES IN PLACE. PATIENT BED ALARM IS ON. HEAD OF BED ELEVATED. BED IS LOCKED IN LOWEST POSITION AND SIDE RAILS UP X2. CALL LIGHT WITHIN. WILL ENDORSE TO NEXT NURSE ON DUTY FOR CONTINUITY OF CARE.
--- NOTE | 2022-07-18 07:30 | NUR ---
RN OPENING NOTE PATIENT IS IN BED AWAKE, ALERT, ORIENTED X 4. WITH OXYGEN VIA NASAL CANNULA AT 1L/MIN. ATRIAL FIBRILLATION IN CVR ON DUST BOX TENDER. DENIES PAIN, BREATHING UNLABORED AND NOT IN ANY FORM OF DISTRESS. RIGHT CHEST WALL HD ACCESS INTACT AND COVERED WITH DRY DRESSING, ECCHYMOSIS NOTED ON SKIN SURROUNDING THE SITE. RIGHT FOREARM SALINE LOCK INTACT AND PATENT. REFUSES BLOOD DRAW DESPITE EXPLAINING TO THE PATIENT WHY IT HAS TO BE DONE. ALL HOSPITAL SAFETY PRECAUTIONS ARE IN PLACE. BED IS LOCKED IN LOWEST POSITION, 3 SIDE RAILS UP, CALL LIGHT WITHIN REACH. WILL CONTINUE TO MONITOR THROUGHOUT SHIFT.
[2022-07-18 08:00] VITALS: BP 101/70
[2022-07-18] MEDS: BLOOD SUGAR DIAGNOSTIC 1 EACH STRIP VI SCH ×2 (08:14→12:27)
[2022-07-18] MEDS: methylPREDNISolone SOD SUCC 40 MG/ML VIAL IV SCH (08:39)
[2022-07-18] MEDS: METOPROLOL SUCCINATE 50 MG TAB.SR.24H PO SCH (08:51)
[2022-07-18] MEDS: PANTOPRAZOLE 40 MG TABLET.DR PO SCH (08:52)
[2022-07-18] MEDS: INSULIN GLARGINE, 100 UNIT/ML CARTRIDGE SQ SCH (08:53)
[2022-07-18] MEDS: *INSULIN REGULAR(HUMULIN R)HUM 100 UNIT/ML VIAL SQ PRN (08:54)
[2022-07-18] MEDS: ASPIRIN 81 MG TAB.CHEW PO SCH (08:55)
[2022-07-18] MEDS: NIFEdipine XL (30MG) 30 MG TAB PO SCH (08:59)
--- NOTE | 2022-07-18 09:00 | NUR ---
RN NOTE NIFEDIPINE AND METOPROLOL NOT GIVEN DUE TO BORDERLINE LOW BLOOD PRESSURE 101/70 AND PATIENT WILL HAVE DIALYSIS TODAY.
[2022-07-18 12:00] VITALS: BP 132/59
--- NOTE | 2022-07-18 12:00 | NUR ---
RN NOTE ATTEMPTED BLOOD DRAW VIA HD ACCESS WITH THE HELP OF DIALYSIS NURSE, BUT PATIENT REFUSED AND YELLED "I DON'T WANT TO GIVE MY BLOOD TO ANYONE."
--- NOTE | 2022-07-18 12:35 | NUR ---
RN NOTE DILTIAZEM NOT GIVEN DUE TO ONGOING HEMODIALYSIS.
[2022-07-18] MEDS ORDERED: PRED20TA PO (12:49)
--- NOTE | 2022-07-18 14:30 | NUR ---
RN NOTE HEMPODIALYSIS COMPLETED. 1.5 L OUTPUT. PATIENT IS STABLE AND NOT IN ANY FORM OF DISTRESS.
--- NOTE | 2022-07-18 16:07 | NUR ---
RN CLOSING NOTE PATIENT IS DISCHARGED TO HOME VIA AMBULANCE CREW. PATIENT IS IN STABLE CONDITION AND NOT IN ANY FORM OF DISTRESS. TOLERATES ROOM AIR, SATTING AT 98%. ALL FORMS PROCESSED. DISCHARGE PACKET GIVEN TO PATIENT. SKIN ISSUES PHOTOGRAPHED AND DOCUMENTED. IV LINE DISCONTINUED AND IV SITE IS COVERED WITH DRY DRESSING. HEMODIALYSIS ACCESS INTACT AND COVERED WITH DRY DRESSING. ALL BELONGINGS RETURNED, INCLUDING MEDICATIONS. DISCHARGE VITAL SIGNS: T 97.5, HR 83, RR 17, O2 SAT 98%, BP 132/59.
== END 2022-07-18 17:51 | disposition home health service (06) | DRG 291 ==
LOC: ER 17:06 → TELE 23:31 → TELE1 07-06 09:18 → TELE-TD 07-06 15:35 → TELE1 07-08 08:47
PROVIDERS: ADMIT Nurse Practitioner Acute Care
PROC: 5A1D70Z Performance of Urinary Filtration, Intermittent, Less than 6 Hours Per Day (ICD-10-PCS; principal; 2022-07-05)
PROC: 05HM33Z Insertion of Infusion Device into Right Internal Jugular Vein, Percutaneous Approach (ICD-10-PCS; 2022-07-05)
PROC: B543ZZA Ultrasonography of Right Jugular Veins, Guidance (ICD-10-PCS; 2022-07-05)
PROC: 0JH63XZ Insertion of Tunneled Vascular Access Device into Chest Subcutaneous Tissue and Fascia, Percutaneous Approach (ICD-10-PCS; 2022-07-12)
PROC: 05HM33Z Insertion of Infusion Device into Right Internal Jugular Vein, Percutaneous Approach (ICD-10-PCS; 2022-07-12)
PROC: B543ZZA Ultrasonography of Right Jugular Veins, Guidance (ICD-10-PCS; 2022-07-12)
DX: I13.0 Hypertensive heart and chronic kidney disease with heart failure and stage 1 through stage 4 chronic kidney disease, or unspecified chronic kidney disease (principal); I50.33 Acute on chronic diastolic (congestive) heart failure; J96.01 Acute respiratory failure with hypoxia; N17.0 Acute kidney failure with tubular necrosis; J44.1 Chronic obstructive pulmonary disease with (acute) exacerbation; E44.0 Moderate protein-calorie malnutrition; D68.59 Other primary thrombophilia; E87.1 Hypo-osmolality and hyponatremia; E87.2 Acidosis; I48.19 Other persistent atrial fibrillation; K81.0 Acute cholecystitis; Z20.822 Contact with and (suspected) exposure to COVID-19; K21.9 Gastro-esophageal reflux disease without esophagitis; Z79.01 Long term (current) use of anticoagulants; Z79.82 Long term (current) use of aspirin; Z79.51 Long term (current) use of inhaled steroids; Z79.84 Long term (current) use of oral hypoglycemic drugs; Z79.899 Other long term (current) drug therapy; N18.9 Chronic kidney disease, unspecified; E11.22 Type 2 diabetes mellitus with diabetic chronic kidney disease; E87.5 Hyperkalemia; E83.51 Hypocalcemia; E78.5 Hyperlipidemia, unspecified; E88.09 Other disorders of plasma-protein metabolism, not elsewhere classified; Z74.01 Bed confinement status; E87.6 Hypokalemia; I07.1 Rheumatic tricuspid insufficiency; Z99.81 Dependence on supplemental oxygen; R59.0 Localized enlarged lymph nodes; B96.89 Other specified bacterial agents as the cause of diseases classified elsewhere
CPT/HCPCS: 36415; 36600; 71045-TC; 71250-TC; 76700-TC; 76770-TC; 78226; 80048-TC; 80053-TC; 80076-TC; 81001; 82010-TC; 82570-TC; 82728-TC; 82803-TC; 82962-TC; 83540-TC; 83605-TC; 83735-TC; 83880; 84100-TC; 84300-TC; 84484-TC; 85025-TC; 85730-TC; 86704; 86705; 86706; 86803; 87040-TC; 87081-TC; 87340; 90935-TC; 93307-TC; 93970-TC; 94799-TC; 97110-TC; 97116-TC; 97530-TC; A6403; A9537; C1750; C1769; C1894; C9803; G0378; J0282; J0456; J0690; J0696; J1644; J1815; J2250; J2405; J2543; J2916; J2920; J2930; J3010; J3475; J3490; J7030; J7040; J7050; J7060

== ENCOUNTER 2022-07-27 10:19 | Inpatient (IN) | payer MEDICARE, OTHER ==
[~2022-07-27] VITALS: Ht 170.2 cm; Wt 79.8 kg
[~2022-07-27 10:19] MED LIST: ALBU18HF2 IH; ASPI-1169 PO; ATOR10TA PO; LOSA100T31 PO; METF-441 PO; METO25TA3 PO; NIFE-34 PO; OMEG10006 PO; OMEP20CA15 PO; PRED20TA PO; RIVA10TA PO; UMEC1BLS IH
--- NOTE | 2022-07-27 10:25 | NUR ---
ANYA RA39 "FROM DIALYSIS CENTER, WAS ON MID-DIALYSIS AND WASN'T RESPONDING, SYNCOPY". AF RATE 130, BG 150. TO ER BED 3, HOOKED TO MONITOR, CHANGED TO HOSP GOWN,NOTED WITH R CHEST DIALYSIS CATHETER. WARM BLANKET PROVIDED. PATIENT AAO x 1. BREATHING EVEN AND UNLABORED. PER DAUGHTER,PATIENT FINISHED 2 OUT OF 3 HRS DIALYSIS. "EXTRA DIALYSIS TODAY DUE TO FLUID AT THE LUNGS". DR MISTRY AT BEDSIDE
[2022-07-27 11:19] LABS: BASOPHILS # (AUTO) 0.1 K/uL (0.0-0.2); BASOPHILS % (AUTO) 1.1 % (0.0-2.0); EOSINOPHILS % (AUTO) 1.7 % (0.0-6.0); HEMATOCRIT 31 % (39-51); HEMOGLOBIN 9.8 g/dL (13.5-17.5); LYMPHOCYTES # (AUTO) 0.5 K/uL (0.8-4.8); LYMPHOCYTES % (AUTO) 5.2 % (20.0-44.0); MEAN CORPUSCULAR HGB CONC 32 g/dl (31.0-36.0); MEAN CORPUSCULAR VOLUME 81 fL (80-96); MONOCYTES # (AUTO) 0.4 K/uL (0.1-1.30); MONOCYTES % (AUTO) 4.3 % (2.0-12.0); NEUTROPHILS # (AUTO) 9.2 K/uL (1.8-8.9); NEUTROPHILS % (AUTO) 87.7 % (43.0-81.0); RED BLOOD CELL COUNT(AUTO) 3.75 MIL/uL (4.5-6.0); WHITE BLOOD COUNT (AUTO) 10.4 K/uL (4.3-11.0)
[2022-07-27 11:24] LABS: PLATELET COUNT (AUTO) 46 K/uL (150-450)
[2022-07-27 11:25] LABS: CALCIUM, SERUM 7.3 mg/dL (8.5-10.1); CARBON DIOXIDE 29 mmol/L (21-32); CHLORIDE 98 mmol/L (98-107); CREATININE 2.7 mg/dL (0.6-1.3); GLUCOSE 130 mg/dL (74-106); POTASSIUM 4.8 mmol/L (3.5-5.1); SODIUM SERUM 135 mmol/L (136-145); UREA NITROGEN, BLOOD 22 mg/dL (7-18)
[2022-07-27 11:41] LABS: ALANINE AMINOTRANSFERASE 26 U/L (12-78); ALBUMIN 1.9 g/dL (3.4-5.0); ALKALINE PHOSPHATASE 92 U/L (46-116); ASPARTATE AMINOTRANSFERASE 50 U/L (15-37); BILIRUBIN,DIRECT 0.1 mg/dL (0.0-0.2); BILIRUBIN,TOTAL 1.8 mg/dL (0.2-1.0); TOTAL PROTEIN, SERUM 5.5 g/dL (6.4-8.2)
--- NOTE | 2022-07-27 11:54 | NUR ---
TROP 183 AWARE
--- NOTE | 2022-07-27 12:26 | NUR ---
RAPID COVID SWAB DONE AND SENT TO LAB
--- NOTE | 2022-07-27 12:48 | NUR ---
LIS CALLED AWAITING HOSPITALIST CALL BACK
--- NOTE | 2022-07-27 13:49 | NUR ---
GOT BED 103
--- NOTE | 2022-07-27 14:14 | NUR ---
PER MARITA SALES TRAINING COORDINATOR [phone], PT CAN STAY
--- NOTE | 2022-07-27 14:21 | NUR ---
REPORT GIVEN TO WANDA MARSHALL FOR PATSY
--- NOTE | 2022-07-27 14:50 | NUR ---
HAIR SPRING CUTTER NOTE ADMIT 72 YEARS OLD MALE ON TELE MONITORING FROM DIALYSIS CENTER,DIAGNOSIS IS SYNCOPE,ALERT ORIENTED X2-3 [place] SPEAKING,ON 5L OXYGEN VIA NASAL CANNULA,O2:96% IV SITE IS ON RIGHT UPPER ARM INTACT PATENT AND DIALYSIS ACCESS ON RIGHT UPPER CHEST.SAFETY MEASURE IMPLEMENT BED IN LOW POSITION AND LOCKED,HEAD OF THE BED ELEVATED,CALL LIGHT WITHIN REACH CONTINUE TO MONITOR.
[2022-07-27 15:00] VITALS: BP 122/89
[2022-07-27 16:00] VITALS: BP 122/89
[2022-07-27] MEDS: IV NS 0.9% 1,000 ML IV PRN (16:54)
[2022-07-27] MEDS ORDERED: Z GUARD REMEDY 4 OZ OINT TP PRN (17:00)
[2022-07-27] MEDS ORDERED: ZOLPIDEM TARTRATE 5 MG TABLET PO PRN (17:00)
[2022-07-27] MEDS ORDERED: ONDANSETRON HCL/PF 4 MG/2 ML VIAL IVP PRN (17:00)
[2022-07-27] MEDS ORDERED: ACETAMINOPHEN 325 MG TABLET PO PRN (17:00)
[2022-07-27] MEDS ORDERED: MAG HYDROX/AL HYDROX/SIMETH 30 ML UDC PO PRN (17:00)
[2022-07-27] MEDS ORDERED: MAGNESIUM HYDROXIDE 30 ML UDC PO PRN (17:00)
--- NOTE | 2022-07-27 18:48 | NUR ---
RN NOTE PATIENT REMAINS ON ALERT ORIENTED X2-3 VERBALLY RESPONSIVE ON 5L OXYGEN VIA NASAL CANNULA O2:97% NO SOB NOT ACUTE DISTRESS NOTED,IV SITE IS ON RIGHT UPPER ARM NS 75CC/HR RUNNING,WILL ENDORSE NEXT COMING SHIFT FOR CONTINUATION OF CARE
[2022-07-27 20:00] VITALS: BP 127/69
--- NOTE | 2022-07-27 20:02 | NUR ---
INSPECTOR WATCH TRAIN OPENING NOTE PATIENT ON BED SLEEPING BUT EASILY AROUSABLE TO TOUCH AND VOICE, ON O2 VIA NC AT 5LPM CURRENTLY SATING 97%, NO SOB AND NO S/SX OF ACUTE DISTRESS NOTED, IV ACCESS ON RIGHT UPPER ARM RUNNING NS AT 75 ML/HR, CALL LIGHT WITHIN REACH, BED IN LOWEST AND LOCKED POSITION, FAMILY MEMBERS AT BEDSIDE, WILL CONTINUE TO MONITOR THROUGHOUT THE SHIFT.
--- NOTE | 2022-07-27 20:10 | NUR ---
RN NOTE FAMILY COMPLAINTS OF BRUISES THAT THE PATIENT GOT FROM [facility] FOR DAILY LAB TEST. PT IS HARDSTICK, FAMILY REQUESTED IF WE CAN OBTAIN A MIDLINE THAT WILL BE USE FOR DAILY BLOOD DRAWN AND IV FLUIDS. INFORMED CN, NSG ENGINE MONITOR MADE AWARE AND APPROVED THE ORDER. MIDLINE INSERTED BY LUCIANO BERNARD AT JENNIFFER #18g, INTACT, PATENT AND FLUSHING WELL.
[2022-07-27 21:51] LABS: BAND % (MANUAL) 3 % (0.0-5.0); EOSINOPHILS % (MANUAL) 3 % (0-4); LYMPHOCYTES % (MANUAL) 5 % (16-48); MONOCYTES % (MANUAL) 3 % (0-11.0); NEUTROPHILS % (MANUAL) 86 (42-76)
[2022-07-28] VITALS: BP 120/75
[2022-07-28 04:00] VITALS: BP 100/61
[2022-07-28] MEDS: IV NS 0.9% 1,000 ML IV PRN ×2 (05:22→23:04)
[2022-07-28 06:03] LABS: BASOPHILS % (AUTO) 0.4 % (0.0-2.0); EOSINOPHILS % (AUTO) 3.3 % (0.0-6.0); HEMATOCRIT 27 % (39-51); HEMOGLOBIN 8.7 g/dL (13.5-17.5); LYMPHOCYTES # (AUTO) 0.6 K/uL (0.8-4.8); LYMPHOCYTES % (AUTO) 9.4 % (20.0-44.0); MEAN CORPUSCULAR HGB CONC 33 g/dl (31.0-36.0); MEAN CORPUSCULAR VOLUME 81 fL (80-96); MONOCYTES # (AUTO) 0.4 K/uL (0.1-1.30); MONOCYTES % (AUTO) 5.4 % (2.0-12.0); NEUTROPHILS # (AUTO) 5.4 K/uL (1.8-8.9); NEUTROPHILS % (AUTO) 81.5 % (43.0-81.0); RED BLOOD CELL COUNT(AUTO) 3.32 MIL/uL (4.5-6.0); WHITE BLOOD COUNT (AUTO) 6.6 K/uL (4.3-11.0)
[2022-07-28 06:19] LABS: ALANINE AMINOTRANSFERASE 18 U/L (12-78); ALBUMIN 1.7 g/dL (3.4-5.0); ALKALINE PHOSPHATASE 79 U/L (46-116); ASPARTATE AMINOTRANSFERASE 22 U/L (15-37); BILIRUBIN,DIRECT 0.4 mg/dL (0.0-0.2); BILIRUBIN,TOTAL 1.2 mg/dL (0.2-1.0); CARBON DIOXIDE 30 mmol/L (21-32); CHLORIDE 100 mmol/L (98-107); CREATININE 2.8 mg/dL (0.6-1.3); GLUCOSE 86 mg/dL (74-106); MAGNESIUM 1.9 mg/dL (1.8-2.4); POTASSIUM 3.2 mmol/L (3.5-5.1); SODIUM SERUM 137 mmol/L (136-145); TOTAL PROTEIN, SERUM 4.8 g/dL (6.4-8.2); UREA NITROGEN, BLOOD 25 mg/dL (7-18)
[2022-07-28 06:47] LABS: PLATELET COUNT (AUTO) 41 K/uL (150-450)
--- NOTE | 2022-07-28 06:54 | NUR ---
RN NOTE CRITICAL LAB VALUE OF PLATELET LOW AT 41 REPORTED TO ARTURO GREGG AT THIS TIME. PT REMAINS ON BED SLEEPING BUT EASILY AROUSABLE TO TOUCH AND VOICE, ON RA TOLERATING WELL, IV ACCESS ON RFA SL AND JENNIFFER MIDLINE RUNNING NS AT 75 ML/HR, NO S/SX OF RESPIRATORY DISTRESS NOTED, ALL DUE MEDS GIVEN, KEPT DRY AND CLEAN, CALL LIGHT WITHIN REACH, BED IN LOWEST AND LOCKED POSITION, WILL ENDORSE TO AM SHIFT NURSE FOR CONTINUITY OF CARE.
[2022-07-28 08:00] VITALS: BP 123/62
[2022-07-28 08:25] LABS: CHOLESTEROL 113 mg/dL (<200); HDL CHOLESTEROL 25 mg/dL (40-60); LDL 73 mg/dL (0-99); THYROID STIMULATING HORMONE 3.236 uIU/mL (0.358-3.74); TRIGLYCERIDES 101 mg/dL (30-150)
[2022-07-28] MEDS: PANTOPRAZOLE 40 MG TABLET.DR PO SCH (08:35)
[2022-07-28 10:41] LABS: BAND % (MANUAL) 1 % (0.0-5.0); EOSINOPHILS % (MANUAL) 2 % (0-4); LYMPHOCYTES % (MANUAL) 7 % (16-48); MONOCYTES % (MANUAL) 2 % (0-11.0); NEUTROPHILS % (MANUAL) 88 (42-76)
[2022-07-28 12:00] VITALS: BP 155/59
[2022-07-28 18:00] VITALS: BP 183/73
--- NOTE | 2022-07-28 19:25 | NUR ---
RN NOTES RECEIVED PT FOR CONTINUITY OF CARE. PATIENT A/O2-3 IN NO S/SX OF ACUTE DISTRESS AT THIS TIME; CURRENTLY ON 5L OF 02 VIA NC; WITH 02 SAT >95% AT THIS TIME.WITH IV ACCESS ON L UA MIDLINE AND R UA BOTH PATENT, INTACT AND FLUSHING WELL. WITH RUNNING NS@75CC/HR. ALSO HAS R CHEST WALL HD CATH; SECURED AND INTACT. PT ON RENAL DIET. WILL ENSURE SAFETY MEASURES WITHIN THE SHIFT. PATIENT BED ALARM IS ON. HEAD OF BED ELEVATED. BED IS LOCKED, IN LOWEST POSITION AND SIDE RAILS UP. CALL LIGHT WITHIN REACH OF THE PATIENT. WILL CONTINUE TO MONITOR AND REASSESS FOR ANY CHANGES AND WILL CARRY OUT ANY ONGOING AND ACTIVE MD ORDER.
[2022-07-28] MEDS: DILTIAZEM HCL 30 MG TABLET PO SCH (19:59)
[2022-07-28 20:00] VITALS: BP 129/78
[2022-07-29] VITALS: BP 106/71
[2022-07-29] MEDS: DILTIAZEM HCL 30 MG TABLET PO SCH ×5 (00:43→23:57)
[2022-07-29 04:00] VITALS: BP 110/72
--- NOTE | 2022-07-29 04:00 | NUR ---
RN NOTES PATIENT REMAINED TO BE IN NO SIGNS OF ACUTE RESPIRATORY DISTRESS , VITAL SIGNS STABLE AT THIS TIME. AM PATIENT CARE RENDERED WILL CONTINUE TO MONITOR AND REASSESS FOR ANY CHANGES THROUGHOUT THE SHIFT.
--- NOTE | 2022-07-29 06:34 | NUR ---
RN CLOSING NOTE: PATIENT REMAINS IN ROOM IN NO SIGNS OF RESPIRATORY DISTRESS, PATIENT STILL NOW ON 3L OF 02 VIA NC;TOLERATING WELL SATURATING @ >95% SP02. AFIB CONTROLLED ON MONITOR HR RANGES 70s-80s. SAFETY MEASURES IMPLEMENTED, BED IN LOWEST POSITION, LOCKED, SIDE RAILS UP, CALL LIGHT WITHIN REACH. ALL NEEDS AND ORDERS ADDRESSED DURING THE SHIFT. IV ACCESS MAINTAINED INTACT, SECURED AND FLUSHING WELL. IV FLUIDS RUNNING ORDERED. ALL DUE MEDS GIVEN ORDERED & SCHEDULED ; PATIENT TOLERATED WELL. PATIENT KEPT CLEAN AND COMFORTABLE WITHIN THE SHIFT. PATIENT ENDORSED TO INCOMING SHIFT RN WITH STABLE VITAL SIGN AND FOR CONTINUITY OF CARE.
--- NOTE | 2022-07-29 06:42 | NUR ---
RN NOTES PT REFUSED BLOOD DRAW FROM RN VIA MIDLINE; EXPLAINED RISK AND BENEFITS BUT SITLL REFUSED MULTIPLE TIMES. RN ACKNOWLEDGED. WILL ENDORSE TO AM SHIFT AND PAYROLL CLERK TO FOLLOW THROUGH AND TO ENDORSE TO MORNING MD. PAYROLL CLERK MADE AWARE. .
--- NOTE | 2022-07-29 07:30 | NUR ---
RN OPENING NOTE PATIENT IS IN BED AWAKE, ALERT AND ORIENTED X 2. WITH OXYGEN VIA NASAL CANNULA AT 3L/MIN. DENIES PAIN, BREATHING UNLABORED AND NOT IN ANY FORM OF DISTRESS. CONTROLLED AFIB ON SENIOR LEAD PROJECT MANAGER. WITH RIGHT UPPER ARM IV LINE INTACT AND INFUSING WITH NS AT 75 CC/HR. WITH LEFT UPPER ARM MIDLINE INTACT AND PATENT. BED IS LOCKED IN LOWEST POSITION, 3 SIDE RAILS UP, CALL LIGHT WITHIN REACH. WILL CONTINUE TO MONITOR THROUGHOUT SHIFT. Addendum: 07/29/22 at 1848 by MACY TREVINO RN RIGHT CHEST WALL HD ACCESS INTACT AND COVERED WITH DRY DRESSING.
[2022-07-29 08:00] VITALS: BP 126/84
[2022-07-29] MEDS: PANTOPRAZOLE 40 MG TABLET.DR PO SCH (08:21)
[2022-07-29] MEDS ORDERED: ALBUTEROL FS 2.5 MG/3 ML VIAL.NEB IH PRN (09:30)
[2022-07-29] MEDS: AMIODARONE HCL 200 MG TABLET PO SCH ×2 (10:05→17:03)
[2022-07-29 12:00] VITALS: BP 138/105
--- NOTE | 2022-07-29 12:18 | NUR ---
RN NOTE PATIENT REFUSED ANOTHER BLOOD DRAW ATTEMPT, STATING THAT HE "COULD BECAUSE OF BLOOD LOSS." HE STATES THAT YEARS AGO HE ALMOST FROM BLOOD LOSS COMING FROM HIS HD ACCESS. RN ATTEMPTED TO EXPLAIN RISKS AND BENEFITS BUT PATIENT STILL REFUSED. CONSULTING SOFTWARE ENGINEER MADE AWARE. Addendum: 07/29/22 at 1315 by MACY TREVINO RN PATIENT ALREADY AGREED TO BLOOD DRAW VIA MIDLINE.
[2022-07-29 13:21] LABS: BASOPHILS % (AUTO) 0.6 % (0.0-2.0); EOSINOPHILS % (AUTO) 4.7 % (0.0-6.0); HEMATOCRIT 28 % (39-51); HEMOGLOBIN 9.2 g/dL (13.5-17.5); LYMPHOCYTES # (AUTO) 0.6 K/uL (0.8-4.8); LYMPHOCYTES % (AUTO) 11.9 % (20.0-44.0); MEAN CORPUSCULAR HGB CONC 33 g/dl (31.0-36.0); MEAN CORPUSCULAR VOLUME 81 fL (80-96); MONOCYTES # (AUTO) 0.5 K/uL (0.1-1.30); MONOCYTES % (AUTO) 10.1 % (2.0-12.0); NEUTROPHILS # (AUTO) 3.6 K/uL (1.8-8.9); NEUTROPHILS % (AUTO) 72.7 % (43.0-81.0); PLATELET COUNT (AUTO) 69 K/uL (150-450); RED BLOOD CELL COUNT(AUTO) 3.46 MIL/uL (4.5-6.0)
[2022-07-29 13:46] LABS: CALCIUM, SERUM 7.4 mg/dL (8.5-10.1); CARBON DIOXIDE 29 mmol/L (21-32); CHLORIDE 100 mmol/L (98-107); CREATININE 2.3 mg/dL (0.6-1.3); GLUCOSE 132 mg/dL (74-106); MAGNESIUM 1.6 mg/dL (1.8-2.4); PHOSPHORUS 2.2 mg/dL (2.5-4.9); POTASSIUM 3.3 mmol/L (3.5-5.1); SODIUM SERUM 135 mmol/L (136-145); UREA NITROGEN, BLOOD 15 mg/dL (7-18)
[2022-07-29 16:00] VITALS: BP 147/78
--- NOTE | 2022-07-29 16:00 | NUR ---
RN NOTE PATIENT REFUSED LINEN CHANGE AND SPONGE BATH. PATIENT VERBALIZED THAT HE NEEDED TO REST AND WILL LET THE NURSE KNOW IF HE NEEDS ONE.
--- NOTE | 2022-07-29 18:43 | NUR ---
RN CLOSING NOTE PATIENT REMAINED STABLE THROUGHOUT SHIFT. TOLERATES OXYGEN VIA NASAL CANNULA AT 3L/MIN. DENIES PAIN, BREATHING UNLABORED AND NOT IN ANY FORM OF DISTRESS. RIGHT UPPER ARM SALINE LOCK AND LEFT UPPER ARM MIDLINE LOCK INTACT AND PATENT. RIGHT CHEST HEMODIALYSIS ACCESS INTACT AND COVERED WITH DRY DRESSING. ALL SAFETY PRECAUTIONS IN PLACE. WILL ENDORSE TO REO ASSET MANAGER NURSE.
--- NOTE | 2022-07-29 19:20 | NUR ---
N NOTES RECEIVED PT FOR CONTINUITY OF CARE. PATIENT A/O2-3 IN NO S/SX OF ACUTE DISTRESS AT THIS TIME; CURRENTLY ON 3L OF 02 VIA NC; WITH 02 SAT >95% AT THIS TIME. FAMILY AT BEDSIDE. WITH IV ACCESS ON L UA MIDLINE AND R UA BOTH PATENT, INTACT AND FLUSHING WELL. WITH R CHEST WALL HD CATH; SECURED AND INTACT. PT ON RENAL DIET. WILL ENSURE SAFETY MEASURES WITHIN THE SHIFT. PATIENT BED ALARM IS ON. HEAD OF BED ELEVATED. BED IS LOCKED, IN LOWEST POSITION AND SIDE RAILS UP. CALL LIGHT WITHIN REACH OF THE PATIENT. WILL CONTINUE TO MONITOR AND REASSESS FOR ANY CHANGES AND WILL CARRY OUT ANY ONGOING AND ACTIVE MD ORDER.
[2022-07-29 20:00] VITALS: BP 120/60
[2022-07-30] VITALS: BP 128/67
[2022-07-30 04:00] VITALS: BP 128/70
[2022-07-30] MEDS: DILTIAZEM HCL 30 MG TABLET PO SCH ×2 (05:20→12:19)
--- NOTE | 2022-07-30 06:31 | NUR ---
RN CLOSING NOTE: PATIENT REMAINS IN ROOM IN NO SIGNS OF RESPIRATORY DISTRESS, PATIENT STILL NOW ON 3L OF 02 VIA NC;TOLERATING WELL SATURATING @ >95% SP02. AFIB CONTROLLED ON MONITOR HR RANGES 70s-80s. SAFETY MEASURES IMPLEMENTED, BED IN LOWEST POSITION, LOCKED, SIDE RAILS UP, CALL LIGHT WITHIN REACH. ALL NEEDS AND ORDERS ADDRESSED DURING THE SHIFT. IV ACCESS MAINTAINED INTACT, SECURED AND FLUSHING WELL. ALL DUE MEDS GIVEN ORDERED & SCHEDULED ; PATIENT TOLERATED WELL. PATIENT REFUSED BLOOD DRAW FOR AM LABS; EXPLAINED RISK AND BENEFITS BUT STILL REFUSED. PATIENT KEPT CLEAN AND COMFORTABLE WITHIN THE SHIFT. PATIENT ENDORSED TO INCOMING SHIFT RN WITH STABLE VITAL SIGN AND FOR CONTINUITY OF CARE.
--- NOTE | 2022-07-30 07:30 | NUR ---
RN OPENING NOTE PATIENT IS IN BED AWAKE, ALERT AND ORIENTED X 2.3. WITH OXYGEN VIA NASAL CANNULA AT 3L/MIN. NO PAIN, BREATHING UNLABORED AND NOT IN ANY FORM OF DISTRESS. CONTROLLED AFIB ON CLINICAL ANALYST. WITH RIGHT UPPER ARM IV LINE INTACT AND INFUSING WITH NS AT 75 CC/HR. INTACT AND PATENT. BED IS LOCKED IN LOWEST POSITION, 3 SIDE RAILS UP, CALL LIGHT WITHIN REACH. WILL CONTINUE TO MONITOR THROUGHOUT SHIFT.
[2022-07-30 08:00] VITALS: BP 109/65
[2022-07-30] MEDS: PANTOPRAZOLE 40 MG TABLET.DR PO SCH (08:25)
[2022-07-30] MEDS: AMIODARONE HCL 200 MG TABLET PO SCH (08:35)
[2022-07-30] MEDS ORDERED: NIFEdipine XL (30MG) 30 MG TAB PO SCH (09:00)
[2022-07-30] MEDS ORDERED: ATORVASTATIN 10 MG TABLET PO SCH (09:00)
[2022-07-30] MEDS ORDERED: TRELEGY ELLIPTA INH SCH (09:00)
[2022-07-30 12:00] VITALS: BP 117/48
[2022-07-30 12:19] VITALS: BP 117/48
[2022-07-30] MEDS ORDERED: AMIO200T7 PO (13:29)
[2022-07-30] MEDS ORDERED: DILT30TA14 PO (13:29)
== END 2022-07-30 15:43 | disposition home health service (06) | DRG 280 ==
LOC: ER 10:27 → TELE1 14:17
PROVIDERS: ADMIT Student in an Organized Health Care Education/Training Program; ATTEND Student in an Organized Health Care Education/Training Program
PROC: 05HA33Z Insertion of Infusion Device into Left Brachial Vein, Percutaneous Approach (ICD-10-PCS; 2022-07-27)
PROC: 5A1D70Z Performance of Urinary Filtration, Intermittent, Less than 6 Hours Per Day (ICD-10-PCS; principal; 2022-07-28)
DX: I21.4 Non-ST elevation (NSTEMI) myocardial infarction (principal); E43 Unspecified severe protein-calorie malnutrition; N18.6 End stage renal disease; N17.0 Acute kidney failure with tubular necrosis; I13.2 Hypertensive heart and chronic kidney disease with heart failure and with stage 5 chronic kidney disease, or end stage renal disease; E87.1 Hypo-osmolality and hyponatremia; D68.59 Other primary thrombophilia; I95.3 Hypotension of hemodialysis; I48.91 Unspecified atrial fibrillation; Z20.822 Contact with and (suspected) exposure to COVID-19; Z74.01 Bed confinement status; J44.9 Chronic obstructive pulmonary disease, unspecified; I50.9 Heart failure, unspecified; E78.5 Hyperlipidemia, unspecified; E11.22 Type 2 diabetes mellitus with diabetic chronic kidney disease; K21.9 Gastro-esophageal reflux disease without esophagitis; Z79.82 Long term (current) use of aspirin; Z79.51 Long term (current) use of inhaled steroids; Z79.84 Long term (current) use of oral hypoglycemic drugs; Z79.899 Other long term (current) drug therapy; R74.01 Elevation of levels of liver transaminase levels; D63.8 Anemia in other chronic diseases classified elsewhere; D69.6 Thrombocytopenia, unspecified; Z99.2 Dependence on renal dialysis; E88.09 Other disorders of plasma-protein metabolism, not elsewhere classified; E83.42 Hypomagnesemia; E87.6 Hypokalemia; Z79.01 Long term (current) use of anticoagulants; E83.39 Other disorders of phosphorus metabolism; N28.1 Cyst of kidney, acquired
CPT/HCPCS: 36415; 70450-TC; 71045-TC; 80048-TC; 80061-TC; 80076-TC; 83735-TC; 84100-TC; 84443-TC; 84484-TC; 85025-TC; 85730-TC; 87081-TC; 90935-TC; 94799-TC; C9803; G0378; J7030

== ENCOUNTER 2022-08-01 17:08 | Inpatient (IN) | payer MEDICARE, OTHER ==
[~2022-08-01] VITALS: Ht 167.6 cm; Wt 79.4 kg
[~2022-08-01 17:08] MED LIST changes: +AMIO200T7 PO; +DILT30TA14 PO; -LOSA100T31 PO; -METO25TA3 PO; -PRED20TA PO; -RIVA10TA PO
[2022-08-01] MEDS ORDERED: IV NS 0.9% 1,000 ML BAG IV ONE (17:30)
[2022-08-01 18:08] LABS: BASOPHILS % (AUTO) 0.3 % (0.0-2.0); EOSINOPHILS % (AUTO) 1.5 % (0.0-6.0); HEMATOCRIT 27 % (39-51); HEMOGLOBIN 8.1 g/dL (13.5-17.5); LYMPHOCYTES # (AUTO) 0.8 K/uL (0.8-4.8); LYMPHOCYTES % (AUTO) 15.7 % (20.0-44.0); MEAN CORPUSCULAR HGB CONC 31 g/dl (31.0-36.0); MEAN CORPUSCULAR VOLUME 86 fL (80-96); MONOCYTES # (AUTO) 0.6 K/uL (0.1-1.30); MONOCYTES % (AUTO) 13.1 % (2.0-12.0); NEUTROPHILS # (AUTO) 3.4 K/uL (1.8-8.9); NEUTROPHILS % (AUTO) 69.4 % (43.0-81.0); PLATELET COUNT (AUTO) 129 K/uL (150-450); RED BLOOD CELL COUNT(AUTO) 3.08 MIL/uL (4.5-6.0); WHITE BLOOD COUNT (AUTO) 4.9 K/uL (4.3-11.0)
[2022-08-01] MEDS ORDERED: NOREPINEPHRINE 8 MG in IV NS 0.9% 242 ML IV PRN (19:00)
[2022-08-01 19:07] LABS: ALANINE AMINOTRANSFERASE 3712 U/L (12-78); ALBUMIN 1.5 g/dL (3.4-5.0); ALKALINE PHOSPHATASE 117 U/L (46-116); ASPARTATE AMINOTRANSFERASE -5 U/L (15-37); BILIRUBIN,TOTAL 1.9 mg/dL (0.2-1.0); CALCIUM, SERUM 7.1 mg/dL (8.5-10.1); CHLORIDE 99 mmol/L (98-107); CREATININE 4.6 mg/dL (0.6-1.3); POTASSIUM 4.9 mmol/L (3.5-5.1); SODIUM SERUM 137 mmol/L (136-145); UREA NITROGEN, BLOOD 30 mg/dL (7-18)
[2022-08-01 19:35] LABS: CARBON DIOXIDE 10 mmol/L (21-32)
[2022-08-01 19:36] LABS: GLUCOSE 44 mg/dL (74-106)
[2022-08-01] MEDS ORDERED: DEXTROSE 50%-WATER 50 ML DISP.SYRIN ONE (19:38)
[2022-08-01] MEDS ORDERED: NOREPINEPHRINE 4 MG/4 ML AMPUL IV ONE (19:43)
[2022-08-01 19:53] LABS: MAGNESIUM 1.8 mg/dL (1.8-2.4); PHOSPHORUS 7.3 mg/dL (2.5-4.9)
[2022-08-01] MEDS ORDERED: DEXTROSE 50%-WATER 50 ML DISP.SYRIN IVP ONE ×2 (20:00→20:30)
[2022-08-01] MEDS ORDERED: CEFEPIME 1 GM in IV D5W 50 ML IV ONE (20:00)
[2022-08-01] MEDS ORDERED: VANCOMYCIN 1 GM in IV D5W 250 ML IV ONE (20:00)
[2022-08-01 20:44] LABS: BILIRUBIN,URINE SMALL (NEGATIVE); COLOR,URINE YELLOW (YELLOW); LEUKOCYTE ESTERASE ,URINE NEGATIVE (NEGATIVE); NITRITE, URINE NEGATIVE (NEGATIVE); PH,URINE 7.5 (5.0-8.0); PROTEIN,URINE 100 mg/dl (NEGATIVE); UGLUCOSE NEGATIVE (NEGATIVE)
[2022-08-01 21:00] LABS: BACTERIA,URINE Moderate /HPF (None Seen); SQUAMOUS EPITHELIAL CELL,UR Rare /HPF (None Seen); WBC,URINE 0-2 /HPF (0-3)
[2022-08-01 21:01] LABS: CALCIUM PHOSPHATE CRYSTALS,UR Many /HPF (None Seen)
[2022-08-01 21:02] LABS: TRIPLE PHOSPHATE CRYSTAL,UR Moderate /HPF (None Seen)
[2022-08-01] MEDS ORDERED: PANTOPRAZOLE 80 MG in IV NS 0.9% 100 ML IV ONE (21:30)
[2022-08-01] MEDS ORDERED: CEFEPIME 1 GM VIAL ONE (21:38)
[2022-08-01] MEDS ORDERED: PANTOPRAZOLE 40 MG VIAL ONE (21:39)
[2022-08-01] MEDS ORDERED: VANCOMYCIN 1 GM VIAL ONE ×2 (21:39→23:39)
[2022-08-01] MEDS: PANTOPRAZOLE 40 MG VIAL IV ONE ×2 (21:44→21:58)
[2022-08-01] MEDS ORDERED: ACETAMINOPHEN 650 MG/SUPP.RECT RC PRN (22:00)
[2022-08-01] MEDS ORDERED: ONDANSETRON HCL/PF 4 MG/2 ML VIAL IVP PRN (22:00)
[2022-08-01] MEDS ORDERED: Z GUARD REMEDY 4 OZ OINT TP PRN (22:00)
[2022-08-01] MEDS ORDERED: IOHEXOL-350 100 ML VIAL IV ONE (22:04)
[2022-08-01] MEDS ORDERED: IV NS 0.9% 250 ML IV ONE (22:05)
[2022-08-01 22:15] LABS: HEMOGLOBIN 7.8 g/dL (13.5-17.5)
[2022-08-01] MEDS: NOREPINEPHRINE 8 MG in IV NS 0.9% 242 ML IV PRN (23:25)
[2022-08-01] MEDS ORDERED: VANCOMYCIN 1 GM in IV D5W 250ml IV ONE (23:30)
[2022-08-01] MEDS: PANTOPRAZOLE 40 MG VIAL IV SCH (23:40)
[2022-08-01] MEDS: IPRATROPIUM NEB FS 0.5 MG/2.5 ML AMPUL.NEB NEB PRN (23:44)
[2022-08-01] MEDS: ALBUTEROL FS 2.5 MG/3 ML VIAL.NEB NEB PRN (23:44)
[2022-08-01 23:45] VITALS: BP 105/65
[2022-08-01] MEDS: BLOOD SUGAR DIAGNOSTIC 1 EACH STRIP IN SCH (23:49)
[2022-08-02] VITALS (98 sets, daily range): BP systolic 63–160; BP diastolic 14–104
[2022-08-02] MEDS: IPRATROPIUM NEB FS 0.5 MG/2.5 ML AMPUL.NEB NEB PRN ×2 (00:34→06:19)
[2022-08-02] MEDS: ALBUTEROL FS 2.5 MG/3 ML VIAL.NEB NEB PRN ×2 (00:34→06:19)
[2022-08-02] MEDS: BLOOD SUGAR DIAGNOSTIC 1 EACH STRIP IN SCH ×12 (01:49→23:05)
[2022-08-02 04:40] LABS: BASOPHILS % (AUTO) 0.4 % (0.0-2.0); EOSINOPHILS % (AUTO) 1.3 % (0.0-6.0); HEMATOCRIT 29 % (39-51); HEMOGLOBIN 8.3 g/dL (13.5-17.5); LYMPHOCYTES % (AUTO) 13.1 % (20.0-44.0); MEAN CORPUSCULAR HGB CONC 29 g/dl (31.0-36.0); MEAN CORPUSCULAR VOLUME 92 fL (80-96); MONOCYTES # (AUTO) 0.9 K/uL (0.1-1.30); MONOCYTES % (AUTO) 11.3 % (2.0-12.0); NEUTROPHILS # (AUTO) 5.8 K/uL (1.8-8.9); NEUTROPHILS % (AUTO) 73.9 % (43.0-81.0); PLATELET COUNT (AUTO) 152 K/uL (150-450); RED BLOOD CELL COUNT(AUTO) 3.13 MIL/uL (4.5-6.0); WHITE BLOOD COUNT (AUTO) 7.9 K/uL (4.3-11.0)
[2022-08-02 05:05] LABS: CALCIUM, SERUM 7.1 mg/dL (8.5-10.1); CHLORIDE 97 mmol/L (98-107); CREATININE 4.7 mg/dL (0.6-1.3); GLUCOSE 195 mg/dL (74-106); MAGNESIUM 1.9 mg/dL (1.8-2.4); POTASSIUM 5.1 mmol/L (3.5-5.1); SODIUM SERUM 134 mmol/L (136-145); UREA NITROGEN, BLOOD 30 mg/dL (7-18)
[2022-08-02 05:13] LABS: ALBUMIN 1.7 g/dL (3.4-5.0); ALKALINE PHOSPHATASE 135 U/L (46-116); BILIRUBIN,DIRECT 1.3 mg/dL (0.0-0.2); TOTAL PROTEIN, SERUM 5.4 g/dL (6.4-8.2)
[2022-08-02 05:25] LABS: THYROID STIMULATING HORMONE 2.318 uIU/mL (0.358-3.74)
[2022-08-02 05:38] LABS: CARBON DIOXIDE 8 mmol/L (21-32); PHOSPHORUS 8.4 mg/dL (2.5-4.9)
[2022-08-02 05:56] LABS: ALANINE AMINOTRANSFERASE > 1000 U/L (12-78); ASPARTATE AMINOTRANSFERASE 0 U/L (15-37)
[2022-08-02 07:03] LABS: FERRITIN 37008 ng/mL (8-388)
[2022-08-02 07:39] LABS: IRON, SERUM 156 ug/dl (50-175); TOTAL IRON BINDING CAPACITY 120 ug/dl (250-450)
[2022-08-02 08:55] LABS: ABG BASE EXCESS -21.3 mmol/L; ABG OXYGEN SATURATION 54.2 % (92.0-98.5); ABG PCO2 20.7 mmHg (35.0-45.0); ABG PO2 39.8 mmHg (75.0-100.0); AaDO2 149.8 mmHg; COHb 0.3 % (0.5-1.5); MetHb 0.5 % (0.0-1.5); O2Hb 53.8 % (94.0-97.0); SITE, ABG Right Radial
[2022-08-02] MEDS: AMIODARONE HCL 200 MG TABLET PO SCH ×2 (09:00→17:00)
[2022-08-02] MEDS ORDERED: OMEGA PO SCH (09:00)
[2022-08-02] MEDS ORDERED: FATTY ACIDS PO SCH (09:00)
[2022-08-02] MEDS: NOREPINEPHRINE 8 MG in IV NS 0.9% 242 ML IV PRN ×2 (09:15→14:52)
[2022-08-02] MEDS: PANTOPRAZOLE 40 MG VIAL IV SCH ×2 (09:36→21:13)
[2022-08-02] MEDS ORDERED: VANCOMYCIN POST DIALYSIS 500MG IV PRN ×2 (10:00)
[2022-08-02] MEDS: Sodium Bicarbonate 100 MEQ in IV D5W 1,000 ML IV SCH (11:27)
[2022-08-02] MEDS: NOREPINEPHRINE 32 MG in IV NS 0.9% 218 ML IV PRN (15:54)
[2022-08-02] MEDS: ATORVASTATIN 10 MG TABLET PO SCH (18:00)
[2022-08-02] MEDS ORDERED: CEFEPIME 2 GM in IV D5W 100 ML IV SCH (20:00)
[2022-08-02] MEDS: CEFEPIME 1 GM in IV D5W 50 ML IV SCH (20:11)
[2022-08-03] VITALS (94 sets, daily range): BP systolic 42–162; BP diastolic 25–98
[2022-08-03] MEDS: BLOOD SUGAR DIAGNOSTIC 1 EACH STRIP IN SCH ×11 (00:57→23:17)
[2022-08-03] MEDS: Sodium Bicarbonate 100 MEQ in IV D5W 1,000 ML IV SCH (03:23)
[2022-08-03] MEDS: DEXTROSE 50%-WATER 50 ML DISP.SYRIN IVP PRN ×3 (05:06→20:02)
[2022-08-03 05:12] LABS: BASOPHILS % (AUTO) 0.2 % (0.0-2.0); EOSINOPHILS % (AUTO) 1.9 % (0.0-6.0); HEMATOCRIT 27 % (39-51); HEMOGLOBIN 8.1 g/dL (13.5-17.5); LYMPHOCYTES # (AUTO) 0.6 K/uL (0.8-4.8); LYMPHOCYTES % (AUTO) 6.9 % (20.0-44.0); MEAN CORPUSCULAR HGB CONC 31 g/dl (31.0-36.0); MEAN CORPUSCULAR VOLUME 85 fL (80-96); MONOCYTES # (AUTO) 0.8 K/uL (0.1-1.30); MONOCYTES % (AUTO) 10.2 % (2.0-12.0); NEUTROPHILS # (AUTO) 6.6 K/uL (1.8-8.9); NEUTROPHILS % (AUTO) 80.8 % (43.0-81.0); PLATELET COUNT (AUTO) 143 K/uL (150-450); RED BLOOD CELL COUNT(AUTO) 3.11 MIL/uL (4.5-6.0); WHITE BLOOD COUNT (AUTO) 8.1 K/uL (4.3-11.0)
[2022-08-03 05:53] LABS: ALBUMIN 1.6 g/dL (3.4-5.0); ALKALINE PHOSPHATASE 157 U/L (46-116); CARBON DIOXIDE 11 mmol/L (21-32); CHLORIDE 96 mmol/L (98-107); GLUCOSE 92 mg/dL (74-106); MAGNESIUM 1.9 mg/dL (1.8-2.4); PHOSPHORUS 7.5 mg/dL (2.5-4.9); POTASSIUM 4.6 mmol/L (3.5-5.1); SODIUM SERUM 134 mmol/L (136-145); TOTAL PROTEIN, SERUM 5.1 g/dL (6.4-8.2); UREA NITROGEN, BLOOD 34 mg/dL (7-18)
[2022-08-03 05:58] LABS: ALANINE AMINOTRANSFERASE > 1000 U/L (12-78)
[2022-08-03] MEDS: NOREPINEPHRINE 32 MG in IV NS 0.9% 218 ML IV PRN ×2 (06:17→21:33)
[2022-08-03 07:02] LABS: ASPARTATE AMINOTRANSFERASE 5138 U/L (15-37)
[2022-08-03] MEDS: AMIODARONE HCL 200 MG TABLET PO SCH ×2 (08:59→17:00)
[2022-08-03] MEDS: PANTOPRAZOLE 40 MG VIAL IV SCH ×2 (09:01→21:00)
[2022-08-03 11:39] LABS: ABG BASE EXCESS -16.3 mmol/L; ABG OXYGEN SATURATION 60.9 % (92.0-98.5); ABG PCO2 26.5 mmHg (35.0-45.0); ABG PH 7.203 (7.350-7.450); ABG PO2 39.6 mmHg (75.0-100.0); COHb 0.8 % (0.5-1.5); MetHb 0.3 % (0.0-1.5); O2Hb 60.2 % (94.0-97.0); SITE, ABG Other; VENT MODE, BG 3 LPM NC
[2022-08-03 11:39] LABS: ABG BASE EXCESS -16.8 mmol/L; ABG OXYGEN SATURATION 59.7 % (92.0-98.5); ABG PCO2 23.5 mmHg (35.0-45.0); ABG PH 7.218 (7.350-7.450); ABG PO2 38.5 mmHg (75.0-100.0); COHb 0.8 % (0.5-1.5); MetHb 0.5 % (0.0-1.5); O2Hb 58.9 % (94.0-97.0); SITE, ABG Other
[2022-08-03] MEDS ORDERED: MIDAZOLAM HCL 2 MG/2ML VIAL ONE (12:54)
[2022-08-03] MEDS ORDERED: FENTANYL PF 250MCG/5ML AMPUL ONE (12:54)
[2022-08-03] MEDS ORDERED: HYDROMORPHONE INJ 2 MG/ML DISP.SYRIN ONE (12:54)
[2022-08-03] MEDS ORDERED: DEXAMETHASONE SOD PHOSPHATE 10 MG/ML VIAL ONE (12:55)
[2022-08-03] MEDS ORDERED: FAMOTIDINE/PF INJ 20 MG/2 ML VIAL IV ONE (12:55)
[2022-08-03] MEDS ORDERED: ROCURONIUM BROMIDE 50 MG/5 ML ONE (12:55)
[2022-08-03] MEDS ORDERED: methylPREDNISolone SOD SUCC 125 MG/2ML VIAL ONE (13:26)
[2022-08-03] MEDS ORDERED: METRONIDAZOLE 500MG/ NS 100ML 100 ML IV ONE (13:27)
[2022-08-03] MEDS ORDERED: LIDOCAINE HCL/MPF 1% 30 ML VIAL IJ ONE (14:00)
[2022-08-03] MEDS ORDERED: BUPIVACAINE 0.25% 75 MG/30 ML VIAL ONE (14:00)
[2022-08-03] MEDS: ATORVASTATIN 10 MG TABLET PO SCH (18:00)
[2022-08-03] MEDS: CEFEPIME 1 GM in IV D5W 50 ML IV SCH (20:53)
[2022-08-04] VITALS (18 sets, daily range): BP systolic 71–134; BP diastolic 50–89
[2022-08-04] MEDS: BLOOD SUGAR DIAGNOSTIC 1 EACH STRIP IN SCH ×2 (00:51→02:52)
[2022-08-04] MEDS: DEXTROSE 50%-WATER 50 ML DISP.SYRIN IVP PRN (02:52)
[2022-08-04 04:43] LABS: BASOPHILS % (AUTO) 0.3 % (0.0-2.0); EOSINOPHILS % (AUTO) 0.7 % (0.0-6.0); HEMATOCRIT 27 % (39-51); HEMOGLOBIN 7.4 g/dL (13.5-17.5); LYMPHOCYTES # (AUTO) 1.7 K/uL (0.8-4.8); LYMPHOCYTES % (AUTO) 12.3 % (20.0-44.0); MEAN CORPUSCULAR HGB CONC 28 g/dl (31.0-36.0); MEAN CORPUSCULAR VOLUME 95 fL (80-96); MONOCYTES # (AUTO) 0.3 K/uL (0.1-1.30); MONOCYTES % (AUTO) 2.2 % (2.0-12.0); NEUTROPHILS # (AUTO) 11.7 K/uL (1.8-8.9); NEUTROPHILS % (AUTO) 84.5 % (43.0-81.0); PLATELET COUNT (AUTO) 112 K/uL (150-450); RED BLOOD CELL COUNT(AUTO) 2.81 MIL/uL (4.5-6.0); WHITE BLOOD COUNT (AUTO) 13.8 K/uL (4.3-11.0)
[2022-08-04 05:31] LABS: ALANINE AMINOTRANSFERASE 2154 U/L (12-78); ALKALINE PHOSPHATASE 227 U/L (46-116); ASPARTATE AMINOTRANSFERASE 2294 U/L (15-37); BILIRUBIN,TOTAL 1.2 mg/dL (0.2-1.0); CALCIUM, SERUM 6.6 mg/dL (8.5-10.1); CHLORIDE 97 mmol/L (98-107); CREATININE 5.8 mg/dL (0.6-1.3); GLUCOSE 158 mg/dL (74-106); MAGNESIUM 2.2 mg/dL (1.8-2.4); SODIUM SERUM 131 mmol/L (136-145); TOTAL PROTEIN, SERUM 4.5 g/dL (6.4-8.2); UREA NITROGEN, BLOOD 39 mg/dL (7-18)
[2022-08-04 06:03] LABS: ALBUMIN 1.2 g/dL (3.4-5.0); CARBON DIOXIDE 8 mmol/L (21-32); PHOSPHORUS 13.1 mg/dL (2.5-4.9); POTASSIUM 7.8 mmol/L (3.5-5.1)
[2022-08-04] MEDS ORDERED: CALCIUM CHLORIDE 1,000 MG/10 ML DISP.SYRIN IV ONE (09:19)
[2022-08-04] MEDS ORDERED: EPINEPHRINE (1:10,000) SYRINGE 1 MG/10 ML DISP.SYRIN IVP ONE (09:21)
[2022-08-04] MEDS ORDERED: SODIUM BICARBONATE SYR 50 MEQ/50 ML DISP.SYRIN IV ONE (09:21)
[2022-08-04] MEDS ORDERED: VANCOMYCIN 1 GM in IV D5W 250 ML IV SCH (23:00)
== END 2022-08-04 10:10 | DRG 420 ==
LOC: ER 17:13 → ICU 21:25
PROVIDERS: ADMIT Nurse Practitioner Family
PROC: 02HV33Z Insertion of Infusion Device into Superior Vena Cava, Percutaneous Approach (ICD-10-PCS; 2022-08-01)
PROC: B548ZZA Ultrasonography of Superior Vena Cava, Guidance (ICD-10-PCS; 2022-08-01)
PROC: 5A09357 Assistance with Respiratory Ventilation, Less than 24 Consecutive Hours, Continuous Positive Airway Pressure (ICD-10-PCS; principal; 2022-08-02)
PROC: 5A1D70Z Performance of Urinary Filtration, Intermittent, Less than 6 Hours Per Day (ICD-10-PCS; 2022-08-02)
PROC: 0WJP4ZZ Inspection of Gastrointestinal Tract, Percutaneous Endoscopic Approach (ICD-10-PCS; 2022-08-03)
PROC: 5A1935Z Respiratory Ventilation, Less than 24 Consecutive Hours (ICD-10-PCS; 2022-08-03)
PROC: 0BH17EZ Insertion of Endotracheal Airway into Trachea, Via Natural or Artificial Opening (ICD-10-PCS; 2022-08-03)
PROC: 5A2204Z Restoration of Cardiac Rhythm, Single (ICD-10-PCS; 2022-08-04)
DX: K76.6 Portal hypertension (principal); E43 Unspecified severe protein-calorie malnutrition; J96.01 Acute respiratory failure with hypoxia; N17.0 Acute kidney failure with tubular necrosis; I85.11 Secondary esophageal varices with bleeding; K72.00 Acute and subacute hepatic failure without coma; N18.6 End stage renal disease; K55.1 Chronic vascular disorders of intestine; I12.0 Hypertensive chronic kidney disease with stage 5 chronic kidney disease or end stage renal disease; E87.2 Acidosis; E87.1 Hypo-osmolality and hyponatremia; I77.4 Celiac artery compression syndrome; R57.1 Hypovolemic shock; D69.6 Thrombocytopenia, unspecified; K74.60 Unspecified cirrhosis of liver; E11.649 Type 2 diabetes mellitus with hypoglycemia without coma; Z20.822 Contact with and (suspected) exposure to COVID-19; E11.22 Type 2 diabetes mellitus with diabetic chronic kidney disease; I48.91 Unspecified atrial fibrillation; Z79.82 Long term (current) use of aspirin; Z79.01 Long term (current) use of anticoagulants; Z79.84 Long term (current) use of oral hypoglycemic drugs; Z79.899 Other long term (current) drug therapy; Z87.891 Personal history of nicotine dependence; J44.9 Chronic obstructive pulmonary disease, unspecified; E88.09 Other disorders of plasma-protein metabolism, not elsewhere classified; Z99.2 Dependence on renal dialysis; E78.5 Hyperlipidemia, unspecified; D64.9 Anemia, unspecified; R62.7 Adult failure to thrive; K40.20 Bilateral inguinal hernia, without obstruction or gangrene, not specified as recurrent
CPT/HCPCS: 31720; 36415; 36569; 36600; 38221; 70450-TC; 71045-TC; 74175-TC; 80048-TC; 80053-TC; 80076-TC; 80202-TC; 81001; 82533; 82728-TC; 82803-TC; 82962-TC; 83540-TC; 83605-TC; 83735-TC; 84100-TC; 84443-TC; 84484-TC; 85025-TC; 85027-TC; 85610-TC; 85730-TC; 86850-TC; 87040-TC; 87081-TC; 87086-TC; 90935-TC; 92950-TC; 94002-TC; 94003-TC; 94760-TC; 94799-TC; C9113; C9803; G0378; J0171; J0690; J0692; J1100; J1170; J2250; J2405; J2765; J2930; J3010; J3370; J3490; J7030; J7050; J7060; J7070; Q9967